=== PATIENT | male | born 1965 | race Caucasian/White ===

== ENCOUNTER 2019-03-01 02:57 | Outpatient (CLI) | payer BC, SELFPAY ==
[2019-03-01 10:12] LABS: CREATININE 1.26 mg/dL (0.70-1.30); Cholesterol 158 mg/dL (50-200); Estimated GFR 59.64 (mL/min/1.73m2); Glucose 116 mg/dL (70-100); HDL Cholesterol 36 mg/dL (40-60); LDL CHOLESTEROL 109 mg/dL (<100); Potassium 4.9 mmol/L (3.5-5.1); Triglyceride 54 mg/dL (30-150)
== END 2019-03-01 03:17 ==
PROVIDERS: PCP Family Medicine; Visit Provider Family Medicine
DX: E74.39 Other disorders of intestinal carbohydrate absorption (principal); E88.81 Metabolic syndrome and other insulin resistance
CPT/HCPCS: 36415; 80061; 82947; 83721; 82565; 84132

== ENCOUNTER 2019-12-16 11:21 | Outpatient (CLI) | payer BC, SELFPAY ==
--- NOTE | 2019-12-16 10:59 | DI.RAD_ITS ---
EXAM: XR KNEE LT 4V AP,LAT,ELLIE,PAT CLINICAL HISTORY: left knee pain TECHNIQUE: COMPARISON: No exams were available for comparison FINDINGS: Four views were obtained. Cartilaginous joint spaces appear fairly well maintained. No significant bony abnormality seen. IMPRESSION: Negative examination of the knee.
== END 2019-12-16 11:41 ==
PROVIDERS: PCP Family Medicine; Visit Provider Physician Assistant
DX: M25.562 Pain in left knee (principal)
CPT/HCPCS: 73564

== ENCOUNTER 2019-12-23 01:37 | Outpatient (CLI) | payer BC, SELFPAY ==
--- NOTE | 2019-12-23 08:07 | DI.MRI_ITS ---
EXAM: MR LOWER JOINT LT WO CLINICAL HISTORY: left knee pain,M25.562. TECHNIQUE: Multiplanar multisequence MRI was performed. COMPARISON: XR KNEE LT 4V AP,LAT,ELLIE,PAT from 12/16/2019 FINDINGS: There is a small joint effusion. There is a small amount of fluid seen anterior to the patella. Mar row signal is normal. The cruciate and collateral ligaments and extensor mechanism appear intact. T here is abnormal linear high signal seen extending through the posterior horn of the medial meniscus. There is also a radially oriented component of the tear in the posterior horn. The lateral meniscu s is somewhat peripherally displaced consistent with degenerative change. There is some linear incre ased signal seen in the body which could indicate a superimposed tear. No focal cartilage defects ar e seen. IMPRESSION: Meniscal flap tear of the posterior horn of the medial meniscus. Degenerative changes of the lateral meniscus with question of superimposed tear in the body.
== END 2019-12-23 01:57 ==
PROVIDERS: PCP Family Medicine; Visit Provider Student in an Organized Health Care Education/Training Program
DX: M25.562 Pain in left knee (principal); M25.462 Effusion, left knee; S83.242A Other tear of medial meniscus, current injury, left knee, initial encounter; M17.12 Unilateral primary osteoarthritis, left knee
CPT/HCPCS: 73721

== ENCOUNTER 2020-10-27 01:52 | Outpatient (CLI) | payer BC, SELFPAY ==
[2020-10-29 10:52] LABS: COVID-19 RT-PCR Result NEGATIVE (Negative)
== END 2020-10-27 02:12 ==
PROVIDERS: PCP Family Medicine; Visit Provider Surgery
DX: Z11.59 Encounter for screening for other viral diseases (principal); Z01.818 Encounter for other preprocedural examination
CPT/HCPCS: U0003

== ENCOUNTER 2020-10-30 10:13 | Day surgery (SDC) | payer BC, SELFPAY ==
[2020-10-30 10:29] VITALS: BP 139/52; PULSE 58; RESP 16; TEMP 36.6; O2SAT 98
[2020-10-30] MEDS: Lactated Ringers 1,000 ML 80 ML IV (10:59)
--- NOTE | 2020-10-30 11:22 | BOWEL_PTH ---
PATIENT: Terry Ayoub LOC: [facility] U#:[id number] AGE/SX: 55/M ROOM: RE10/30/[address]: Lisa Schroeder : 1965 BED: DIS: 10/30/2020 SPEC #: [id number] RECD: 10/30/20 12:35 STATUS: IVÁN REQ #: [id number] JANIS: 10/30/20 11:[address]: Lisa Schroeder DEPT: Surgical Specimen RECD BY: Naz Nunez ENTERED: 10/30/20 12:35 SP TYPE: Bowel OTHR DR: John Garza MD Tissues: 1 - BIOPSY BOWEL 2 - BIOPSY BOWEL Procedures: GROSS AND MICRO LEVEL 4 Comments: [id number]
--- NOTE | 2020-10-30 11:54 | W.PM.DSUDISC ---
Discharge Plan Disposition Patient Disposition: HOME Condition: Good Discharge Details Reason For Visit: colon scope Attending Provider: Lisa Schroeder Primary Care Provider: John Garza Home Meds and New Rx's Prescriptions: Continued lisinopril 10 mg tablet 10 mg PO DAILY Qty: 90 RF: 4 lovastatin 20 mg tablet 20 mg PO HS Qty: 90 RF: 4 fish oil-dha-epa 1 EACH capsule 1 ea PO DAILY RF: 0 MOTRIN 600 MG tablet 600 mg PO TID PRN RF: 0 c-pap RF: 0 Discontinued polyethylene glycol 3350 17 gram/dose powder 238 g PO ONCE Qty: 238 RF: 0 bisacodyl [Dulcolax (bisacodyl)] 5 mg tablet,delayed release (DR/EC) 5 mg PO ONCE Qty: 4 RF: 0 aspirin 81 MG tablet,chewable 81 mg PO DAILY Qty: 90 RF: 3 Discharge Instructions Additional Instructions: Findings: Few small scattered right-sided diverticula. There is make sure you follow a high-fiber diet and avoid straining to move your bowels. No significant hemorrhoidal disease. X3 small polyps in the rectal region-We will send a letter with the results of the pathology in 2 to 3 weeks and when to repeat the colonoscopy. -No aspirin or NSAIDs for 5 days. Follow up: 5 to 10 years. Please call if you develop: fevers >101.5 Nausea or Vomiting Abdominal pain that is not transient DAY SURGERY UNIT POST COLONOSCOPY INSTRUCTIONS 1. Because there will be medication in your system for the next 24 hours, you may feel a little sleepy. Your coordination will be affected. Therefore: a. Do not drive or operate dangerous equipment for 24 hours. b. Do not drink alcohol beverages for 24 hours (not even beer). c. Plan to go home and rest for the day. 2. Generally there are no restrictions on your activity after a day or so has gone by, but you may feel a bit fatigued for a few days. 3 After you arrive home you may have a light meal and return to a normal diet as you can tolerate it without feeling sick to your stomach. 4. After surgery, you may feel pain or discomfort. This should be only transient, but if it persists please contact your doctor. 5. If there are any questions regarding the findings of your procedure, please feel free to contact your doctor. 6. If you are unable to contact your doctor with a problem, contact the hospital at [phone]. 9. Continue all your regular medications unless directed otherwise. I understand the above instructions and have no questions. Signature of Patient or Responsible Adult Escort Date/Time Name of Responsible Adult Escort Signature of Nurse Date/Time DIVERTICULAR DISEASE OVERVIEW ? A diverticulum is a pouch-like structure that can form through points of weakness in the muscular wall of the colon (ie, at points where blood vessels pass through the wall). Diverticulosis affects men and women equally. The risk of diverticular disease increases with age. It occurs throughout the world but is seen more commonly in developed countries. WHAT IS DIVERTICULAR DISEASE? Diverticulosis ? Diverticulosis merely describes the presence of diverticula. Diverticulosis is often found during a test done for other reasons, such as flexible sigmoidoscopy, colonoscopy, or barium enema. Most people with diverticulosis have no symptoms and will remain symptom free for the rest of their lives. A person with diverticulosis may have diverticulitis, or diverticular bleeding. Diverticulitis ? Inflammation of a diverticulum (diverticulitis) occurs when there is thinning and breakdown of the diverticular wall. This may be caused by increased pressure within the colon or by hardened particles of stool, which can become lodged within the diverticulum. The symptoms of diverticulitis depend upon the degree of inflammation present. The most common symptom is pain in the left lower abdomen. Other symptoms can include nausea and vomiting, constipation, diarrhea, and urinary symptoms such as pain or burning when urinating or the frequent need to urinate. Diverticulitis is divided into simple and complicated forms. ?Simple diverticulitis, which accounts for 75 percent of cases, is not associated with complications and typically responds to medical treatment without surgery. ?Complicated diverticulitis occurs in 25 percent of cases and usually requires surgery. Complications associated with diverticulitis can include the following: ?Abscess ? a localized collection of pus ?Fistula ? an abnormal tract between two areas that are not normally connected (eg, bowel and bladder) ?Obstruction ? a blockage of the colon ?Peritonitis ? infection involving the space around the abdominal organ ?Sepsis ? overwhelming body-wide infection that can lead to failure of multiple organs Diverticular bleeding ? Diverticular bleeding occurs when a small artery located within a diverticulum is eroded and bleeds into the colon. Diverticular bleeding usually causes painless bleeding from the rectum. In approximately 50 percent of cases, the person will see maroon or bright red blood with bowel movements. Is bleeding with a bowel movement normal? ? It is not normal to see blood in a bowel movement; this can be a sign of several conditions, most of which are not serious (eg, hemorrhoids) but some of which are serious and require immediate treatment. Anyone who sees blood after a bowel movement should consult with their healthcare provider to determine if further testing or evaluation is needed. DIVERTICULOSIS AND DIVERTICULITIS DIAGNOSIS ? Diverticulosis is often found during tests performed for other reasons. ?Barium enema ? This is an x-ray study that uses barium in an enema to view the outline of the lower intestinal tract. This is an older test and has been largely replaced by computed tomography (CT) scan. ?Flexible sigmoidoscopy ? This is an examination of the inside of the sigmoid colon with a thin, flexible tube that contains a camera. ?Colonoscopy ? This is an examination of the inside of the entire colon. ?CT scan ? A CT scan is often used to diagnose diverticulitis and its complications. If diverticulitis (not just diverticulosis) is suspected, the above three tests should not be used because of the risk of perforation. TREATMENT Diverticulosis ? People with diverticulosis who do not have symptoms do not require treatment. However, most clinicians recommend increasing fiber in the diet, which can help to bulk the stools and possibly prevent the development of new diverticula, diverticulitis, or diverticular bleeding. Fiber is not proven to prevent these conditions in all patients but may help to control recurrent episodes in some. Increase fiber ? Fruits and vegetables are a good source of fiber. Fiber content of packaged foods can be calculated by reading the nutrition label. Seeds and nuts ? Patients with diverticular disease have historically been advised to avoid whole pieces of fiber (such as seeds, corn, and nuts) because of concern that these foods could cause an episode of diverticulitis. However, this belief is completely unproven. We do not suggest that patients with diverticulosis avoid seeds, corn, or nuts. Diverticulitis ? Treatment of diverticulitis depends upon how severe your symptoms are. Home treatment ? If you have mild symptoms of diverticulitis (mild abdominal pain, usually left lower abdomen), you can be treated at home with a clear liquid diet and oral antibiotics. However, if you develop one or more of the following signs or symptoms, you should seek immediate medical attention: ?Temperature >100.1?F (38?C) ?Worsening or severe abdominal pain ?An inability to tolerate fluids Hospital treatment ? If you have moderate to severe symptoms, you may be hospitalized for treatment. During this time, you are not allowed to eat or drink; antibiotics and fluids are given into a vein. If you develop an abscess of the colon, you may require drainage of the abscess (usually performed by placing a drainage tube across the abdominal wall) or by surgically opening the affected area. Surgery ? If you develop a generalized infection in the abdomen (peritonitis), you will usually require an emergency operation. A two-part operation may be necessary in some cases. ?The first operation involves removal of the diseased colon and creation of a colostomy. A colostomy is an opening between the colon and the skin, where a bag is attached to collect waste from the intestine. The lower end of the colon is temporarily sewed closed to allow it to heal. ?Approximately three to six months later, a second operation is performed to reconnect the two parts of the colon and close the opening in the skin. You are then able to empty your bowels through the rectum. Sometimes patients require up to a year to recover from the first operation, depending on how sick they were. In non-emergency situations, the diseased area of the colon can be removed and the two ends of the colon can be reconnected in one operation, without the need for a colostomy. Surgery versus medical therapy ? An operation to remove the diseased area of the colon may be necessary if you do not improve with medical therapy. After an episode of uncomplicated diverticulitis, elective surgery is generally not required as the risk of another attack or requiring emergency surgery is low. However, patients with persistent symptoms attributable to diverticulitis, a history of complicated diverticulitis, or a compromised immune system should be evaluated for possible surgery to prevent another attack. In such patients, another attack has been associated with a higher risk of complications or . Of course, the decision will also depend in part upon your other medical conditions and ability to undergo surgery. In many cases, an elective operation can be performed laparoscopically, using small incisions, rather than the typical vertical (up and down) abdominal incision. Laparoscopic surgery usually allows you to recover more quickly and shortens the hospital stay. After diverticulitis resolves ? After an episode of diverticulitis resolves, if you have not had a recent colonoscopy, the entire length of the colon should be evaluated to determine the extent of disease and to rule out the presence of abnormal lesions such as polyps or cancer. Recommended tests include colonoscopy, barium enema and sigmoidoscopy, or CT colonography. Diverticular bleeding ? Most cases of diverticular bleeding resolve on their own. However, some people will need further testing or treatment to stop bleeding, which may include a colonoscopy, angiography (a treatment that blocks off the bleeding artery), bleeding scan, or surgery. DIVERTICULAR DISEASE PROGNOSIS Diverticulosis ? Over time, diverticulosis may cause no problems or it may cause episodes of bleeding and/or diverticulitis. Approximately 15 to 25 percent of people with diverticulosis will develop diverticulitis, while 5 to 15 percent will develop diverticular bleeding. Diverticulitis ? Approximately 85 percent of people with uncomplicated diverticulitis will respond to medical treatment, while approximately 15 percent of patients will need an operation. After successful treatment for a first attack of diverticulitis, one-third of patients will remain asymptomatic, one-third will have episodic cramps without diverticulitis, and one-third will go on to have a second attack of diverticulitis. The prognosis tends to remain similar following a second attack of diverticulitis. Only 10 percent of people remain symptom-free after a second attack. Subsequent attacks tend to be of similar severity, not increasing in severity as previously believed. High Fiber Diet What is Dietary Fiber? All fiber comes from plants, bushes, tasha or trees. Of course, the ones that we eat provide us with fruits, vegetables and grains. There are many different types of fiber but the three that are most important to the health of the body are: Insoluble Fiber This fiber does not dissolve in water, nor is it fermented by the bacteria residing in the colon. Rather, it retains water and in so doing, helps to promote a larger, bulkier and more regular bowel activity. This, in turn, may be important in preventing disorder such as diverticulosis and hemorrhoids, and in sweeping out certain toxins and cancer causing carcinogens. Sources of insoluble fiber are: ? whole grain wheat and other whole grains ? corn bran, including popcorn, unflavored and unsweetened ? nuts and seeds ? potatoes and the skins from most fruits from trees such as apples, bananas and avocados ? many green vegetables such as green beans, zucchini, celery and cauliflower ? some fruit plants such as tomatoes and kiwi Soluble Fiber These fibers are fermented or used by the colon bacteria as a food source or nourishment. When these good bacteria grow and thrive, many health benefits occur in both the colon and the body. Soluble fiber is present in some degree in most edible plant foods, but the ones with the most soluble fiber include: ? legumes such as peas and most beans, including soybeans ? oats, rye and barley ? many fruits such as berries, plums, apples bananas and pears ? certain vegetables such as broccoli and carrots ? most root vegetables ? psyllium husk supplement products Prebiotic Soluble Fiber These are relatively newly discovered soluble plant fibers. The technical name for this fiber is inulin or fructan. When these soluble fibers are fermented by the good colon bacteria, some further significant health benefits have been shown to occur by research in many medical centers. These soluble prebiotic fibers occur in significant amounts in: ? asparagus ? yams ? onions ? garlic ? bananas ? leeks ? agave ? chicory and other root vegetables such as [place] artichokes ? wheat, rye and barley (smaller amounts) Benefits of a High Fiber Diet The health benefits of a high fiber diet, consumed on a regular basis and reaching recommended amounts (below), are now fairly well-defined. There are some additional benefits in the early research stage with the prebiotic soluble fibers. What is now known regarding a high fiber diet include: Bowel Regularity A high fiber diet promotes regularity with a softer, bulkier and regular stool pattern. This decreases the chance of hemorrhoids, diverticulosis and perhaps colon cancer. Cholesterol and Reduced Triglycerides The soluble fibers are the ones that will reduce cholesterol levels when used on a regular basis. Psyllium husk and prebiotic soluble fiber will also reduce cholesterol. They may also reduce the incidence of coronary heart disease. Oats, flax seeds and legumes or beans are the recommended fibers. Colon Polyps and Cancer It is still not certain if a high fiber diet helps prevent colon cancer. Considerable research suggests that this may occur. Certainly it makes sense to increase regularity and so speed the movement of cancer causing carcinogens through the bowel. In addition, reducing a heavy meat diet reduces the bile flow from the liver in a favorable way. This, too, reduces the amount of carcinogens that reach and are manufactured in the colon. Finally, a high fiber diet, including prebiotic soluble fiber, increases the integrity and health of the wall of the colon. The risk of cancer may be reduced. Colon Wall Integrity A high fiber diet changes the bacterial makeup of the colon toward a more favorable balance. For instance, it is known that those people with obesity, diabetes type 2 and inflammatory bowel disease have a predominance of bad bacteria in the colon. This, in turn, may render the bowel wall weak and allow bacteria and, indeed, even toxins to seep through. A high fiber diet with a modest reduction in animal and meat products may return the bacterial makeup to a more positive balance. This, in particular, has been seen when the soluble fiber prebiotics are added to the diet. Blood Sugar Soluble fiber such as in legumes (beans), oats and in prebiotic fibers slows the absorption of blood sugar and so helps regulate the sugar in the blood. Insoluble fiber on a regular basis is associated with reduced risk of type 2 diabetes. Weight Loss High fiber diets are more filling and give a sense of fullness sooner than an animal and meat based diet does. In addition, the soluble prebiotic fibers have been shown to turn off the hunger hormones produced in the wall of the gut and to increase the hormones that give a sense of fullness. Those hormones are made in the wall of the gut. New medical research has shown that the bacterial makeup in the colon in overweight people is abnormal to the extent that they manufacture and absorb almost twice the number of calories through the colon wall as do normals. Prebiotic fibers (below) will help change this hormonal balancein a favorable way. Bacteria and the Function of the Colon The colon finishes the digestive process. Hopefully, the waste products move through in a nice regular manner. Insoluble fibers help this process by retaining water and so producing a bulkier, softer stool, which is easy to pass. The additional role of the colon is to provide a home for an enormous number of micro-organisms, mostly bacteria. Recent research has shown that there are over 1,000 species of bacteria with a total bacterial count ten times the number of cells in the body. These bacteria play a major role in keeping the colon wall itself healthy. In addition, these good bacteria produce a very strong immune system for the body. They significantly increase calcium absorption and bone density. They provide other documented benefits. It is the soluble fibers in the diet that are so effective in stimulating the growth of good colon bacteria. How Much is Enough? The amount of fiber in food is measured in grams. National nutritional authorities recommend the following amounts of dietary fiber daily. Under Age 50 Over Age 50 Men 38 grams 30 grams Women 25 grams 21 grams For a week or so, it is best to tally the amount of fiber you are consuming. Boxed and packaged foods will have the amount of fiber per serving on the nutrition label. Which Fibers and Which Foods are Best? As noted, healthy fiber is only found in plants. The three major categories are whole grains, fruits and vegetables. Whole Grains Wheat, oats, barley, wild or brown rice, amaranth, buckwheat, bulgur, corn, millet, quinoa, rye, sorghum, teff and triticals. By far, wheat, oats and wild or brown rice are most common. Always buy whole grain products. White bread, baked goods and rolls almost always are made from wheat flour. Wheat flour is white because most of the fiber, vitamins and other nutrients have been removed. Try not buy enriched grains. What this means is that simple white flour has had vitamins added to it by the business intelligence analyst. The word, enriched, implies a good and healthy product. On the contrary, enriched means that most of the fiber has been removed and a few vitamins added. Fruits Fruits come from trees such as apple and pear or from bushes or tasha. You should eat a wide variety of fruits, preferably with every meal. In many cases, the skin of a fruit such as apple will contain much of the insoluble fiber while the pulp contains most of the soluble fiber. To the extent possible, buy organic fruits as these will have little or no pesticides. Always wash fruit. Vegetables Eat a wide variety of vegetables. They should be a mainstay of lunch and dinners. Frozen vegetables retain as much nutrition and fiber as fresh vegetables. As with fruit, try to buy organic to reduce any residual pesticide ingestion. Wash fresh vegetables thoroughly. Cruciferous vegetables such as broccoli, Brilliant sprouts and cauliflower contain certain chemicals such as sulforaphane. This substance has very strong anti-cancer properties and should be eaten frequently. Legumes, Beans, Peas and Soybeans These vegetables have plenty of soluble fiber and should be part of a varied vegetable intake. Beans, in particular, contain a certain type of fiber that may lead to harmless gas or bloating. Nuts and Seeds These are rich sources of fiber and are a good substitute for sweets such as candies and baked sweet goods. While nuts and seeds are rich in fiber, they also contain vegetable fat and so can and do add calories. Read the Labels As noted, fresh and frozen foods are usually better. They have good nutrition and few, if any, chemicals added to them. When buying packaged foods and, in particular grains, look for three things: ? The first word on the label should be whole, such as whole wheat or whole grain. ? Check out the calories and the amount of fiber in a serving. ? How many and what other additives or chemicals are added. Fewer is always better. Do you know what each additive does? Some are added not for the benefit of the purchasing buyer but rather for manufacturers. These could and do include sugar, artificial flavor, chemicals to prevent oxidation and spoilage, emulsifiers to blend the product. You have to be a ambulance operations supervisor. Fiber Facts, Nuggets and Pearls ? For breakfast you can easily get the day started well by using a high fiber, whole grain cereal. Check the labels. Add fruit such as blueberries and bananas. If you are an egg eater, use whole wheat or grain toast. Adding wheat germ gives you a good fiber kick. ? Always use whole grain or wheat with rolls and sandwiches. Does your fast food store not have them? Perhaps you look elsewhere. Eating an occasional black mims or veggie burger provides variety. ? Snacks should consist of fruit and/or nuts. While nuts are loaded with fiber, they are an energy rich food, meaning they have a lot of calories in a small packet. ? Fruit juices should contain pulp. Clear juices such as clear orange, pear or apple juice contain little fiber and have a lot of fructose. Prune juice is usually high in fiber. ? Homemade soups ? adding fresh or frozen vegetables to a chicken or vegetable stock is a good way to start homemade soup. ? Salads ? adding cooked and then chilled vegetables provide great flavoring to almost any salad. Remember, a cain salad has lots of cooked corn in it. Small slices of apples or oranges and nuts such as chopped walnuts or sliced almonds always adds taste, variety and fiber to almost any salad. ? Fruit ? Try to eat fruit of some type with almost every meal. ? Rethink how you place the various foods on your dinner plate. Reducing the portions of the meat or animal food portion to the side with equal or more portions of vegetables, legumes and fruits portion always allows for more fiber. There was never anything magic about making the meat or animal food portion the main part of the dinner plate. Eating from smaller plates can, over time, trick your mind and correction habit of using a dinner plate. Again, there is nothing magic in an 11, 12, or 13 inch dinner plate. Fiber Supplements There are a variety of fiber supplements available on the food or pharmacy shelves. Psyllium This soluble plant fiber has been used in [place] for over 2,000 years. It is a soluble fiber with mucilage in it. This acts to retain a lot of water and also is fermented by colon bacteria. When 7 grams a day are used, it does lower cholesterol. Metamucil in various forms is psyllium. Methyl Cellulose All the cellulose products come from finely ground wood chips which are then treated in a variety of ways such as boiling in acids. Methyl cellulose is an insoluble fiber which does dissolve in water. It is also an emulsifier, meaning it blends oils and water. Citrucel is methyl cellulose (MC). MC may not be appropriate for Crohn?s disease or ulcerative colitis as several medical studies have shown that certain emulsifiers dissolve the mucous lining of the colon in animals prone to Crohn?s disease. This then allows bacteria to invade the underlying tissue. Inulin Inulin is a soluble prebiotic fiber found in many foods and which are fermented mostly in the left side of the colon. It is available in a supplement as generic inulin and in Fiber Choice. Oligofructose FOS These are also prebiotic fibers. They are fermented very quickly in the right side of the colon. Prebiotin This product is a combination of oligofructose, which feeds the bacteria in the right side of the colon and inulin, which does the same in the left side of the colon. There seems to be a benefit for this particular formula based on medical research. Prebiotic Soluble Fiber These may be the healthiest of all the soluble fibers. They grow in many plants and have had a great deal of research done on them in the last 10-15 years. These fibers are found in asparagus, yams and other root vegetables such as chicory, garlic, onion, leeks and in smaller amounts in wheat. This research has shown the following: ? Increase in good and decrease in bad colon bacteria ? Increase calcium absorption and enhanced bone mass ? Enhanced immune system ? Appetite and weight control by changing the hormone appetite signals to the brain ? May decrease colon cancer incidence ? Reduce or correct a leaky colon Eating a wide variety of plant food up to the recommended amount will likely give you enough prebiotic fiber. Supplements such as Prebiotin can be added to the diet. Short Chain Fatty Acids (SCFA) Some rather remarkable research findings have shown that one of the benefits of ingesting a lot of soluble fiber, in particular the prebiotic ones, results in larger amounts of SCFAs in the colon. These SCFAs are made by the good bacteria in the colon such as Bifidobacter and Lactobacillus. These small molecules have been shown to do the following: ? Enhance the health and integrity of the colon wall ? Provide nourishment for the cells that actually line the colon ? Increases the acidity of the colon which is a very real health benefit ? Stabilize blood sugar for diabetics ? Reduce blood cholesterol and triglyceride ? Significantly enhance immunity ? May be a benefit for Crohn?s disease and ulcerative colitis patients Fiber and Gas Everyone has intestinal gas and that is a good thing. It means that bacteria, hopefully the good ones, are thriving. The normal amount of flatus passed each day depends on sex and what is eaten. The normal number of flatus is 10-20 times a day. When the bacteria that make intestinal gases are growing, it also means that other good bacteria are using the same fibers to grow and produce multiple health benefits, including the production of healthy short-chain fatty acids. These substances are produced quietly in the colon and produce many health-related outcomes. Soluble fiber should always be used in a gradual manner. If too much is consumed at any one time, then excess, but harmless, intestinal gas can occur. People with irritable bowel syndrome are particularly prone to bloating and mild cramping. In this instance, soluble fiber in the diet or supplement should be used in small doses and increased gradually. Finally, prebiotic fibers tend to cause the production of short-chain fatty acids which acidify the colon. This, in turn, reduces or stops the growth of bacteria that make the smelly hydrogen sulfide gases that produce noxious flatus. People who consume many vegetables with prebiotics or take a prebiotic fiber supplement often have non-odoriferous flatus. Fiber and Irritable Bowel Syndrome Irritable bowel syndrome (IBS) is one of the most common disorders of the lower digestive tract. The symptoms of IBS can be quite varied. They can be a mix of several symptoms such as constipation, diarrhea, crampy abdominal discomfort, bloating and gas. An attack of IBS can be triggered by emotional tension and anxiety, poor dietary habits and certain medications. It is now known that infections in the intestine can lead to long-term IBS symptoms. Increased amounts of fiber in the diet can help relieve the symptoms of irritable bowel syndrome by producing soft, bulky stools. This helps to normalize the time it takes for the stool to pass through the colon. Recent medical research with newer techniques has shown some surprising and dramatic findings for IBS patients. Specifically, there is a very significant and abnormal shift of bacteria from those that provide health benefits to those bad bacteria that we really do not want in the gut. The technical name for this bad group of bacteria is called Firmicutes. Along with this abnormal bacterial collection, there is a smoldering low-grade inflammation in the gut wall that may contribute to symptoms. The goal for IBS patients should be to gradually increase the soluble dietary fibers in the diet so as to promote the growth of good bacteria and so suppress the bad ones along with the associated inflammation. IBS patients need to be careful of the amount of soluble fiber they consume. The reason for this is that, while the good colon bacteria thrive on these fibers and produce health benefits, other gas-forming bacteria may generate excessive but harmless gas and subsequent bloating. Thus, soluble plant fibers or a dietary prebiotic supplement should be taken in small initial doses and then gradually increased to tolerance. Fiber and Colon Polyps/Cancer Colon cancer is a major health problem. This disease is most common in Western cultures. It is not seen very often in rural cultures where the diet is mostly plant based. Usually, colon cancer starts out as a colon polyp, a benign mushroom-shaped growth. In time it grows, and in some people it becomes cancerous. Colon cancer is usually always curable if polyps are removed when found or if surgery is performed at an early stage. It is now known that people can inherit the risk of developing colon cancer, but diet is important, too. As noted, there is a very low rate of colon cancer in residents of countries where grains are unprocessed and retain their fiber. It seems that in the [place] world, cancer-containing agents (carcinogens) remain in contact with the colon wall for a longer time and in higher concentrations. So, a large bulky stool may act to dilute these carcinogens by moving them through the bowel more quickly. Less carcinogenic exposure to the colon may mean fewer colon polyps and less cancer. A very current review of the entire world?s literature on the effect of fiber on colon polyps and cancer prevention has shown rather clearly that for every 10 grams of fiber added to the diet, there is a 10% reduction in incidence of colon cancer. So the recommended 30 gram fiber diet would result in a 30% less chance of getting these tumors. There are also substances produced in the colon by the good bacteria that seem to retard certain pre-cancer factors from developing. They are called short-chain fatty acids (SCFA). See above for description of SCFAs. A high fiber diet increases these substances. So, the combination of dietary fiber and the production of short-chain fatty acids have a clear health benefit. Fiber and Diverticulosis Prolonged, vigorous contraction of the colon over a long period of time may result in diverticulosis. This increased pressure causes small and, eventually, larger ballooning pockets to form. These pockets by themselves cause no problem. However, sometimes they become infected (diverticulitis) or even break open (perforate) causing infection or inflammation within the abdomen (peritonitis). A high fiber diet increases the bulk in the stool and thereby reduces the pressure within the colon. By so doing, the formation of pockets may be reduced or possibly even stopped. In the past, many physicians were fearful that seeds as in tomatoes, nuts or berries were harmful and could get inside these pockets and rattle around, causing damage. We now know that this has never been the case and that these foods contain lots of fiber and are actually beneficial for diverticulosis patients. Certain bulking agents such as psyllium are traditional types of bulk producing supplements. Psyllium is a soluble fiber. Combining it with insoluble fiber as in wheat bran or corn bran (no gluten) can enhance this bulking effect even more. A product containing a prebiotic, psyllium and wheat bran is probably a very good combination for bowel regularity. Prebiotin Regularity/Diverticulosis is one such product. Activity:: No strenuous activity or lifting over 20 pounds x 24 hours. Diet:: Small light meals x24 hours Discharge Orders Discharge Orders: Discharge Order (Routine); Ordered 10/30/20 Ordered By: Lisa Schroeder DS: Diagnosis Discharge Diagnosis (1) Colon polyp: Status: Acute (2) Diverticula, colon, congenital: Status: Acute
--- NOTE | 2020-10-30 12:00 | W.COLOREPORT ---
Date of service: 10/30/20 Time of Service: 12:00 Colonoscopy Report Date of procedure: 10/30/20 Pre-op diagnosis general: CRC screen Post-op diagnosis procedure note: other (polyps and divertic ) Surgeon: Lisa Schroeder Anesthesia proc note operative: GETA Estimated blood loss (mL): 1 Pathology: other Complications: None Disposition: same day Prep: Miralax/Dulcolax Retraction Time: 15 mins Procedure Description: After informed consent was obtained the patient was taken to the procedure room and placed in a left decubitous position. Monitors were applied and a time out was done. The patients name, date of , procedure, allergies to medications and metal in their body was reviewed. The patient was then sedated. Once sedated and comfortable a rectal exam was done. External exam was normal. Internal exam revealed a normal sphincter tone and no palpable masses. No significant hemorrhoidal disease noted today. The scope was then introduced and retrofelexed. no Internal hemorrhoids were identified. The scope was then advanced to the cecum w/out difficulty. The TI and appendiceal orifice were identified. The prep was good. The scope was then slowly retracted over 15 minutes back into the rectum. Polyps were removed at: He has x4 less than 5 mm flat polyps. 2 at 20 cm of int he has a few small right-sided diverticula. They are very small and scattered. There is no signs of any active bleeding or infection. Mucosa is otherwise normal and healthy. There are no AVMs. in the rectum. These are all removed with a cold biting force. All specimens retrieved and no bleeding noted. The scope was removed and the patient was woken up and taken back to Same day surgery in stable condition. The patient tolerated the procedure well and there were no immediate complications. Follow up: The patient should follow up in 5-10 years, path pd, unless they develop changes in bowel habits or other new gastrointestinal complaints.
[2020-10-30 12:36] VITALS: BP 130/76; PULSE 56; RESP 16; TEMP 36.6; O2SAT 99
== END 2020-10-30 12:45 | disposition home or self-care (01) ==
PROVIDERS: PCP Family Medicine; Visit Provider Surgery
PROC: 0DJD8ZZ Inspection of Lower Intestinal Tract, Via Natural or Artificial Opening Endoscopic (ICD-10-PCS; CPT 45378; principal; 2020-10-30 10:30)
DX: Z12.11 Encounter for screening for malignant neoplasm of colon (principal); K63.5 Polyp of colon; K57.30 Diverticulosis of large intestine without perforation or abscess without bleeding; I10 Essential (primary) hypertension; G47.33 Obstructive sleep apnea (adult) (pediatric)
CPT/HCPCS: 45380; 88305

== ENCOUNTER 2021-03-05 01:33 | Outpatient (CLI) | payer BC, SELFPAY ==
[2021-03-05 14:40] LABS: CREATININE 1.4 mg/dL (0.70-1.30); Calculated LDL 108 mg/dL (<100); Cholesterol 164 mg/dL (<200); Estimated GFR 52.42 (mL/min/1.73m2); HDL Cholesterol 45 mg/dL (40-60); Potassium 4.8 mmol/L (3.5-5.1); Triglyceride 58 mg/dL (<150)
== END 2021-03-05 01:34 | disposition home or self-care (01) ==
LOC: LOS 01:33
PROVIDERS: PCP Family Medicine; Visit Provider Family Medicine
DX: I10 Essential (primary) hypertension (principal); E78.5 Hyperlipidemia, unspecified
CPT/HCPCS: 36415; 80061; 82565; 84132

== ENCOUNTER 2021-12-22 12:42 | Outpatient (REF) | payer BC, SELFPAY ==
[2021-12-23 13:34] LABS: COVID-19 RT-PCR UVMMC Result Negative (Negative)
== END 2021-12-22 12:43 | disposition home or self-care (01) ==
LOC: LBN 12:42
PROVIDERS: PCP Family Medicine; Visit Provider Nurse Practitioner Family
DX: R05.9 Cough, unspecified (principal); R06.2 Wheezing; R09.89 Other specified symptoms and signs involving the circulatory and respiratory systems; Z20.822 Contact with and (suspected) exposure to COVID-19
CPT/HCPCS: U0003

== ENCOUNTER 2021-12-31 00:59 | Outpatient (CLI) | payer BC, SELFPAY ==
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
== END 2021-12-31 01:19 ==
PROVIDERS: PCP Family Medicine; Visit Provider Nurse Practitioner Family
DX: R05.3 Chronic cough (principal); R91.8 Other nonspecific abnormal finding of lung field
CPT/HCPCS: 71046

== ENCOUNTER 2022-01-17 11:30 | Outpatient (CLI) | payer BC, SELFPAY ==
--- NOTE | 2022-01-17 10:30 | DI.RAD_ITS ---
Exam(s) XR CHEST 2V PA LATERAL EXAM: XR CHEST 2V PA LATERAL CLINICAL HISTORY: F/U with nipple markers CHRONIC COUGH R05.3. TECHNIQUE: 2D digital imaging was performed. COMPARISON: CR XR CHEST 2V PA LATERAL from 12/31/2021 FINDINGS: Heart size is normal. The mediastinum is not widened. Lungs are clear. No infiltrates nor pleural effusions. Previously present nodular density in the right lung base is less evident on the present study. Kiran hayley, the nipple marker does appear to be in the region where the previously present nodule was locate d. IMPRESSION: No acute pulmonary findings.No obvious nodule on the present study. Recommend repeat chest x-ray in 3 months with maximum inspiration. DATA REPOSITORY: RADIATION DOSE DELIVERED:
== END 2022-01-17 11:50 ==
PROVIDERS: PCP Family Medicine; Visit Provider Nurse Practitioner Family
DX: R05.3 Chronic cough (principal)
CPT/HCPCS: 71046

== ENCOUNTER 2022-05-04 03:51 | Outpatient (CLI) | payer BC, SELFPAY ==
[2022-05-04 08:58] LABS: ALT 46 U/L (16-63); AST 23 U/L (15-37); Albumin 3.8 g/dL (3.4-5.0); Alkaline Phosphatase 87 U/L (46-116); Anion Gap 7.2 mmol/L (3-11); BUN 22 mg/dL (7-18); Bilirubin, Total 0.6 mg/dL (0.2-1.0); CO2 29.8 mmol/L (21.0-32.0); CREATININE 1.4 mg/dL (0.70-1.30); Calcium 8.8 mg/dL (8.5-10.1); Chloride 100 mmol/L (98-107); Estimated GFR 52.05 (mL/min/1.73m2); Glucose 121 mg/dL (74-106); Potassium 4.5 mmol/L (3.5-5.1); Sodium 137 mmol/L (136-145); Total Protein 7.2 g/dL (6.4-8.2)
== END 2022-05-04 03:52 | disposition home or self-care (01) ==
LOC: LBO 03:51
PROVIDERS: PCP Nurse Practitioner Family; Visit Provider Nurse Practitioner Family
DX: I10 Essential (primary) hypertension (principal)
CPT/HCPCS: 36415; 80053

== ENCOUNTER 2023-07-25 03:20 | Outpatient (CLI) | payer BC, SELFPAY ==
[2023-07-25 08:59] LABS: Hemoglobin A1C 6.1 % (<5.7)
[2023-07-25 09:21] LABS: CREATININE 1.4 mg/dL (0.70-1.30); Calculated LDL 96 mg/dL (<100); Cholesterol 153 mg/dL (<200); HDL Cholesterol 42 mg/dL (40-60); Potassium 4.6 mmol/L (3.5-5.1); Triglyceride 78 mg/dL (<150)
== END 2023-07-25 03:21 | disposition home or self-care (01) ==
LOC: LBO 03:20
PROVIDERS: PCP Nurse Practitioner Family; Visit Provider Nurse Practitioner Family
DX: I10 Essential (primary) hypertension (principal); E78.5 Hyperlipidemia, unspecified; Z13.1 Encounter for screening for diabetes mellitus
CPT/HCPCS: 36415; 80061; 82565; 83036; 84132

== ENCOUNTER 2023-08-29 22:45 | Inpatient (IN) | payer BC, SELFPAY ==
[2023-08-29] VITALS (8 sets, daily range): BP systolic 147–205; BP diastolic 87–111; PULSE 75–96; RESP 18; TEMP 36.8; O2SAT 89–97
--- NOTE | 2023-08-29 22:45 | DI.CT_ITS ---
Exam(s) CT ABDOMEN PELVIS W EXAM: CT ABDOMEN PELVIS W CLINICAL HISTORY: abdominal pain, n/v, ?sbo. TECHNIQUE: Imaging Protocol: Axial computed tomography images with coronal and sagittal reformatted images were created and reviewed CONTRAST MATERIAL: Intravenous: Omnipaque-350 100cc Oral: None COMPARISON: CT ABD PELVIS WITH CONTRAST from 08/29/2015 FINDINGS: VISUALIZED LUNG BASES: No nodules nor pleural effusions evident. ABDOMEN: There is no ascites. LIVER: Liver is again noted be hypodense implying steatosis. There are no discrete focal hepatic les ions nor dilated intrahepatic ducts. GALLBLADDER/BILIARY: No obvious gallbladder pathology. CBD is not dilated. PANCREAS: No evidence of pancreatic mass nor dilatation of the pancreatic duct. SPLEEN: Spleen size upper normal. No splenic lesions evident. Splenic and portal veins are patent. ADRENALS: There are no significant adrenal masses. KIDNEYS:No cysts evident. No solid renal masses. No calculi nor hydronephrosis.. ABDOMINAL AORTA: Calcified but not enlarged. Iliac arteries also calcified but not enlarged. LYMPH NODES:There is no retroperitoneal nor paraaortic adenopathy. ABDOMINAL WALL: Fat only containing right paraumbilical hernia. There is also a left inguinal hernia which contains part of the sigmoid. The sigmoid at this level is collapse. This is not the transit ion point level here. There is also a right inguinal hernia which contains some fluid but no bowel l oops within the hernia sac. GI: There are multiple abnormally dilated small bowel loops and stomach is also distended. Consisten t with mid small bowel obstruction pattern, similar to 2015. Transition point is in the right-side o f the abdomen with collapsed distal I ileal loops. The dilated bowel loops measure up to 3.5 cm. No associated pneumatosis. No free air. No ascites. No abscess. PELVIS: GI: No evidence of appendicitis.Significant part of the colon is collapsed. LYMPH NODES: There is no intrapelvic nor inguinal adenopathy. REPRODUCTIVE: Prostate not enlarged. Seminal vesicles unremarkable. URINARY BLADDER: No calculi nor obvious masses evident OSSEOUS: No fractures and no significant osseous lesions. IMPRESSION: 1. Findings are consistent with mid-distal small bowel obstruction with transition point in the right -side of the abdomen at the mid-distal ileal region. Similar small bowel obstruction was evident in August 2015. Correlation with history of inflammatory bowel disease recommended. 2. Bilateral inguinal hernias are noted. Left inguinal hernia contains part of the collapsed sigmoid . The right inguinal hernia contains some fluid but no bowel loops therein. 3. Surgical consultation recommended RADIATION DOSE DELIVERED: 801.38mGy.cm Total DLP DATA REPOSITORY: All CT scans at this facility are submitted to the National Radiology Data Registry (NRDR) Dose Index Registry (DIR) with the [employer] ([employer]). RADIATION OPTIMIZATION: All CT scans at this facility use at least one of these dose optimization te chniques: automated exposure control; mA and/or kV adjustment per patient size (includes targeted exa ms where dose is matched to clinical indication); or iterative reconstruction.
--- NOTE | 2023-08-29 22:58 | W.ED.GENAD ---
Discharge Plan Disposition Patient Disposition: Admit to [facility] Condition: Stable Discharge Details Clinical Impression: Small bowel obstruction Primary Care Provider: Aj Rucker ED Provider: Dhaval Hale Home Meds and New Rx's Prescriptions: No Action cyclobenzaprine 5 mg tablet See Rx Instructions PO DAILY Qty: 30 1RF Rx Instructions: 1-2 pills at bedtime as needed. 1 pill every 8 hours during the day as needed for additional pain relief orally daily; prednisone 20 mg tablet See Rx Instructions PO ONCE Qty: 15 0RF Rx Instructions: Take 3 pills today and then 2 pills every morning for 6 more days. orally once; methylprednisolone 4 mg tablets,dose pack 4 mg PO DAILY Qty: 21 0RF aspirin 81 mg tablet,chewable 81 mg PO DAILY Qty: 90 3RF omeprazole 20 mg capsule,delayed release(DR/EC) 20 mg PO DAILY Qty: 60 0RF fish oil-dha-epa 1 EACH capsule 1 ea PO DAILY MOTRIN 600 MG tablet 600 mg PO TID PRN c-pap tadalafil 20 mg tablet 20 mg PO DAILY PRN (Reason: sexual activity) Qty: 30 3RF Rx Instructions: administer approximately 30min before sexual activity; do not use more than 1 dose per 24hrs losartan 50 mg tablet 50 mg PO DAILY Qty: 90 3RF lovastatin 20 mg tablet 20 mg PO HS Qty: 90 12RF Medical Decision Making 58 yo male with hx of htn, hld, prior umbilical hernia surgery comes in with cc of abdominal pain. HE states he felt well during the day and then after eating dinner he started to have n/v and abdominal pain. He denies fevers, chills, chest pain, dyspnea. He arrives hypertensive but stable. HE is tender in all quadrants and his abdomen is firm, concern for sbo vs other acute surgical emergencies, will proceed with cbc, cmp, lipase, ua and ct abd/pelvis to further evaluate. He has no chest pain or dyspnea so doubt acs and no upper tearing back pain so doubt dissection. CT confirms sbo with transition point in right mid abdomen. Pt was feeling better but is now again vomiting and having pain. He has had a scrotal hernia before but has no pain in the testicles. Discussed with Dr. Schroeder who accepts for admission. Differential Diagnosis Differential Diagnosis: sbo, pancreatitis Medical Records Medical records reviewed: Yes I reviewed the patient's medical records. Imaging Data Radiologic Study: Attestation: I personally reviewed and interpreted this imaging study as follows: Imaging: CT Scan Radiologist's impression: IMPRESSION: Findings concerning for distal small bowel obstruction with apparent transition point in the right mid abdomen (mid to distal ileum). Radiologic Study #2: Attestation: I personally reviewed and interpreted this imaging study as follows: Imaging: X-Ray My impression: NG tube just distal to the stomach Lab Data Lab results reviewed: Yes I reviewed the patient's lab results. HPI General Mode of arrival: ambulatory. Date/Time Provider Initiated Documentation: 08/29/23 22:46. Limitations to Documentation: no limitations. Information obtained by: patient. History of Present Illness 58 year old M presents to the emergency department with the chief complaint of abdominal pain, described as moderate, and is localized to the abdomen. Patient reports no radiation. Patient started experiencing this hour(s) (3) and it has been constant. No relieving factors improve symptom(s), No exacerbating factors reported . Patient notes nausea/vomiting; denies chest pain, fever/chills and shortness of breath. Patient did receive the following treatments prior to arrival, none Related Data Home Medications Medication Instructions Recorded Confirmed Motrin 600 mg PO TID PRN 05/27/13 08/18/23 fish oil-dha-epa 1,200 mg-144 1 ea PO DAILY 05/27/13 08/18/23 mg-216 mg capsule C-Pap 07/25/17 08/18/23 tadalafil 20 mg tablet 20 mg PO DAILY PRN sexual activity 04/06/23 08/18/23 #30 tabs aspirin 81 mg chewable tablet 81 mg PO DAILY #90 tabs 07/17/23 08/18/23 omeprazole 20 mg capsule,delayed 20 mg PO DAILY #60 caps 07/17/23 08/18/23 release losartan 50 mg tablet 50 mg PO DAILY #90 tabs 07/26/23 08/18/23 lovastatin 20 mg tablet 20 mg PO HS #90 tab-caps 07/26/23 08/18/23 cyclobenzaprine 5 mg tablet See Rx Instructions PO DAILY #30 08/18/23 08/18/23 tabs prednisone 20 mg tablet See Rx Instructions PO ONCE #15 08/18/23 08/18/23 tabs methylprednisolone 4 mg tablets in 4 mg PO DAILY #21 dose pk 08/28/23 08/28/23 a dose pack Previous Rx's Medication Instructions Recorded tadalafil 20 mg tablet 20 mg PO DAILY PRN sexual activity 04/06/23 #30 tabs aspirin 81 mg chewable tablet 81 mg PO DAILY #90 tabs 07/17/23 omeprazole 20 mg capsule,delayed 20 mg PO DAILY #60 caps 07/17/23 release losartan 50 mg tablet 50 mg PO DAILY #90 tabs 07/26/23 lovastatin 20 mg tablet 20 mg PO HS #90 tab-caps 07/26/23 cyclobenzaprine 5 mg tablet See Rx Instructions PO DAILY #30 08/18/23 tabs prednisone 20 mg tablet See Rx Instructions PO ONCE #15 08/18/23 tabs methylprednisolone 4 mg tablets in 4 mg PO DAILY #21 dose pk 08/28/23 a dose pack Allergies Allergy/AdvReac Type Severity Reaction Status Date / Time No Known Allergies Allergy Verified 08/28/23 14:40 General Stated Complaint: Abd Prob DANY: 3 Review of Systems All systems reviewed & are unremarkable except as noted in HPI and below Constitutional Constitutional: Denies chills, Denies fever(s) and Denies weakness Cardiovascular Cardiovascular: Denies chest pain and Denies dyspnea Respiratory Respiratory: Denies cough and Denies dyspnea Gastrointestinal Gastrointestinal: Reports abdominal pain, Reports nausea and Reports vomiting Genitourinary Genitourinary: Denies dysuria Integumentary/Breasts Skin/Breast: Denies rash Neurologic Neurologic: Denies weakness PFSH All Active Problems (Updated 08/30/23 @ 00:53 by Dhaval Hale MD) Small bowel obstruction (Acute) Sciatica (Acute) Left lumbosacral radiculopathy (Acute) Chronic cough (Acute) Diverticula, colon, congenital (Acute) Colon polyp (Acute) Tear of medial meniscus of left knee, current (Acute) Internal derangement of left knee (Acute) Knee pain, left (Chronic) Erectile dysfunction (Acute 07/15/15) Family hx of prostate cancer (Acute 07/04/13) father Hydrocele, left (Acute 07/15/15) Hyperlipidemia (Acute 07/04/13) Hypertension (Chronic) 03/16/17 [facility]: elevated creatinine;elevated lft's; ekg: ? old infarct Severe obstructive sleep apnea (Acute 06/03/17) 06/03/17-[facility];VERY SEVERE IN REM SLEEP Medical History Concussion Obstructed umbilical hernia (08/02/12) Surgical History History of colonoscopy (~10/30/20) Repair of inguinal hernia RIGHT Vasectomy Family History Mother Diabetes Essential hypertension Heart disease Hyperlipidemia Father Essential hypertension Heart disease Hyperlipidemia Prostate cancer Sister Essential hypertension Hyperlipidemia Sister No problems noted. Sister No problems noted. Brother Essential hypertension Hyperlipidemia Brother No problems noted. Maternal Grandfather No problems noted. Paternal Grandfather No problems noted. Maternal Grandmother Diabetes Essential hypertension Hyperlipidemia Paternal Grandmother Heart disease Breast cancer Social History (Updated 03/05/22 @ 11:11 by Karolina Bae) Smoking/Tobacco Use Status: Never Second Hand Exposure: Yes Smoking risk assessment performed?: Yes Alcohol Intake: current Alcohol Intake frequency: a few times a month Alcohol type: beer Drug use: Never Substance use type: does not use Caregiver/Support person: No Household members: spouse Housing: house Communication Needs: None Do you need help understanding health information?: Never Pets and animals: Yes Pets and animals: cat(s) and dog(s) Sexually active: Yes Do you think of yourself as: straight/heterosexual Current gender identity: male What is your relationship status?: How often do you talk on the phone with friends or family?: three or more times per week How often do you get together with friends or relatives?: three or more times per week How often do you attend caodaism or episcopalian services?: decline to answer Do you belong to any clubs or organized social groups?: no Panel score (0-1 are the most socially isolated patients): 2 Duration: > 90 minutes/day Frequency: daily Rajwinedr/Mandaeism: No preference Special rajwinder needs: No Seatbelt use: never Helmet use: Yes Helmet use: sometimes Drive 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 Do you feel safe at home: Yes Do you feel safe in your relationship?: Yes Exam Const General: no acute distress Orientation: alert HENMT Head: normal to inspection Ears: external ears normal General nose exam: external nose normal Mouth: moist mucous membranes Eyes General: appearance normal, both eyes and all related structures Neck Neck: normal visual inspection Resp Effort & Inspection: normal respiratory effort and able to speak in complete sentences Cardio Rate: regular rate GI Palpation: tender Skin General skin exam: no rashes or lesions noted Neuro General: patient alert and patient oriented x3 Extrem General: normal to inspection Psych Mental Status: mental status grossly normal Course Vital Signs Vital signs: Vital Signs Temperature 36.8 C 08/29/23 22:48 Pulse 90 08/29/23 22:48 Respiratory Rate 18 08/29/23 22:48 Blood Pressure 205/111 H 08/29/23 22:48 Pulse Oximetry 97 08/29/23 22:48 Temperature 36.8 C 08/29/23 22:48 Temperature Source Oral 08/29/23 22:48 Pulse 90 08/29/23 22:48 Respiratory Rate 18 08/29/23 22:48 Respiratory Effort Normal 08/29/23 22:52 Blood Pressure 205/111 H 08/29/23 22:48 Pulse Oximetry 97 08/29/23 22:48 Oxygen Delivery Method Room Air 08/29/23 22:48 Oxygen Flow Rate 0 08/29/23 22:48 Pain Level 8 08/29/23 22:48
[2023-08-29] MEDS: Ondansetron 4 MG/2 ML VIAL IVP (23:15)
[2023-08-29] MEDS: HYDROmorphone 2 MG/ML SYR 1 MG IVP (23:15)
[2023-08-29] MEDS: Normal Saline 1,000 ML 1000 ML IV (23:20)
[2023-08-29 23:30] LABS: Abs Immature Grans 0.04 10^3/uL (0.0-0.06); Absolute Basophil Count 0.02 10^3/uL (0.0-0.2); Absolute Lymphocyte Count 1.15 10^3/uL (1.2-3.4); Absolute Monocyte Count 0.61 10^3/uL (0.1-0.8); Basophils % 0.2; HCT 52.2 % (40.0-50.0); Immature Grans % 0.4; Lymphocytes % 10.4; MCH 29.5 pg (27.0-33.0); MCHC 33.5 % (32.0-36.0); MCV 88 fL (80-95); MPV 10.9 fL (8.0-11.0); Monocytes % 5.5; Neutrophils % 83.5; Platelet Count 161 10^3/uL (130-400); RBC 5.94 10^6/uL (4.36-5.78); RDW 11.9 % (11.8-14.1); WBC 11.07 10^3/uL (4.4-10.8)
[2023-08-29 23:31] LABS: Absolute Neutrophil Count 9.24 10^3/uL (1.2-6.7); HGB 17.5 g/dL (13.5-17.5)
[2023-08-29 23:52] LABS: ALT 50 U/L (16-63); AST 17 U/L (15-37); Albumin 4.4 g/dL (3.4-5.0); Alkaline Phosphatase 92 U/L (46-116); BUN 25 mg/dL (7-18); Bilirubin, Total 0.7 mg/dL (0.2-1.0); CREATININE 1.5 mg/dL (0.70-1.30); Calcium 10.1 mg/dL (8.5-10.1); Chloride 101 mmol/L (98-107); Glucose 132 mg/dL (74-106); Lipase 36 U/L (16-77); Magnesium 2.2 mg/dL (1.8-2.4); Potassium 4.6 mmol/L (3.5-5.1); Sodium 137 mmol/L (136-145); TSH (W/Ref FT4) 3.03 uIU/mL (0.36-3.74); Total Protein 8.4 g/dL (6.4-8.2)
[2023-08-30] VITALS (37 sets, daily range): BP systolic 110–172; BP diastolic 69–93; PULSE 56–87; RESP 11–26; TEMP 35.9–37.4; O2SAT 89–99
[2023-08-30] MEDS: Omnipaque 350 MG/ML 100 ML BTL IJ (00:01)
[2023-08-30] MEDS: Normal Saline Flush 10 ML SYR IVP ×3 (00:02→09:31)
[2023-08-30] MEDS: Normal Saline - Diluent 50 ML VIAL IJ (00:02)
--- NOTE | 2023-08-30 00:43 | DI.VRAD_ITS ---
Addendum created by Yayo Choudhury MD on 08/30/2023 12:46:09 AM EDT: THIS REPORT CONTAINS FINDINGS THAT MAY BE CRITICAL TO PATIENT CARE. The findings were verbally communicated via telephone conference with Dhaval Hale at 12:46 AM EDT on 08/30/2023. The findings were acknowledged and understood. Initial report created on 08/30/2023 12:42:54 AM EDT: PROCEDURE INFORMATION: Exam: CT Abdomen And Pelvis With Contrast Exam date and time: 08/30/2023 12:17 AM Age: 58 years old Clinical indication: Nausea and vomiting; Abdominal pain; Generalized; Prior surgery; Surgery date: 6+ months; Surgery type: Hernia repair; Patient HX: Abd pain, n/v ? sbo TECHNIQUE: Imaging protocol: Computed tomography of the abdomen and pelvis with contrast. Radiation optimization: All CT scans at this facility use at least one of these dose optimization techniques: automated exposure control; mA and/or kV adjustment per patient size (includes targeted exams where dose is matched to clinical indication); or iterative reconstruction. Contrast material: OMNIPAQUE 350; Contrast volume: 100 ml; Contrast route: INTRAVENOUS (IV); COMPARISON: MR LOWER JOINT LT WO 12/23/2019 8:07 AM FINDINGS: Liver: Normal. No mass. Gallbladder and bile ducts: Normal. No calcified stones. No ductal dilation. Pancreas: Normal. No ductal dilation. Spleen: Normal. No splenomegaly. Adrenal glands: Normal. No mass. Kidneys and ureters: Normal. No hydronephrosis. Stomach and bowel: Several moderately distended fluid-filled small bowel loops throughout the abdomen with abrupt transition to nondilated small bowel in the right mid abdomen. A few dilated small bowel loops containing fecal matter. Moderate amount of gas and stool noted in the proximal colon. Appendix: The appendix is visualized and appears normal. Intraperitoneal space: Unremarkable. No free air. No significant fluid collection. Vasculature: Moderate atherosclerotic calcification throughout the aorta and iliac arteries. No evidence of aneurysm or dissection. Lymph nodes: Unremarkable. No enlarged lymph nodes. Urinary bladder: Unremarkable as visualized. Reproductive: Unremarkable as visualized. Bones/joints: Moderate multilevel degenerative disc changes. No vertebral body compression or acute fracture. Soft tissues: Unremarkable. IMPRESSION: Findings concerning for distal small bowel obstruction with apparent transition point in the right mid abdomen (mid to distal ileum). Dictated and Authenticated by: Yayo Choudhury MD. Ordering:QUINTON Puentes MD
[2023-08-30] MEDS: Ondansetron 4 MG/2 ML VIAL IVP (00:55)
[2023-08-30 00:57] LABS: Bilirubin Negative (Negative); Blood Trace-intact (Negative); Clarity Clear (Clear); Glucose Negative (Negative); Ketones 15 mg/dL (Negative); Leukocyte Esterase Negative (Negative); Nitrite Negative (Negative); Specific Gravity 1.015 (1.005-1.025); Urobilinogen 0.2 mg/dL (Up to 0.2)
[2023-08-30] MEDS: HYDROmorphone 2 MG/ML SYR 1 MG IVP (00:58)
[2023-08-30 01:15] LABS: Bacteria Negative HPF (Negative); C & S Indicated? No; Casts Negative LPF (Negative); Crystals Negative HPF (Negative); Epithelial Cells Negative HPF (Negative); Mucus Negative (Negative); WBC 0-2 HPF (0-5)
--- NOTE | 2023-08-30 01:31 | DI.RAD_ITS ---
Exam(s) XR PORTABLE CHEST AP POST LINE EXAM: XR PORTABLE CHEST AP POST LINE CLINICAL HISTORY: ng tube placement. TECHNIQUE: 2D digital imaging was performed. COMPARISON: CR XR CHEST 2V PA LATERAL from 01/17/2022 FINDINGS: Single AP portable view. Heart size is upper normal. The mediastinum is not widened. Lungs are clear. No infiltrates nor obvious pleural effusions. There is an NG tube in good position in the stomach along the greater curvature. Stomach is not dist ended. IMPRESSION: No acute pulmonary findings on this single AP portable view of the chest. DATA REPOSITORY: RADIATION DOSE DELIVERED:
--- NOTE | 2023-08-30 01:46 | DI.VRAD_ITS ---
PROCEDURE INFORMATION: Exam: XR Chest Exam date and time: 08/30/2023 1:40 AM Age: 58 years old Clinical indication: Device placement; Patient HX: Ng tube placement TECHNIQUE: Imaging protocol: Radiologic exam of the chest. Views: 1 view. COMPARISON: CR XR CHEST 2V PA LATERAL 01/17/2022 3:49 PM FINDINGS: Tubes, catheters and devices: Esophagogastric tube in good position with the tip and side port in the stomach. Lungs: Unremarkable. No consolidation. Pleural spaces: Unremarkable. No pleural effusion. No pneumothorax. Heart/Mediastinum: Unremarkable. No cardiomegaly. Bones/joints: Moderate degenerative changes of the spine noted. IMPRESSION: Esophagogastric tube in good position. Dictated and Authenticated by: Yayo Choudhury MD. Ordering:QUINTON Puentes MD
--- NOTE | 2023-08-30 02:01 | NUR.NOTE ---
16f NG tube placed by ED MD at 64 at the nose. NG Tube placement verified by xray. NG Tube retracted to 55 at nose per ed md. NG Tube is having intermittent suction issues. Tube was irrigated with water. NG tube output is 250ml total. NG tube is on low intermittent suction Nursing Note:
[2023-08-30] MEDS: Normal Saline 1,000 ML 150 ML IV (02:48)
--- NOTE | 2023-08-30 03:21 | DI.RAD_ITS ---
Exam(s) XR PORTABLE CHEST AP POST LINE EXAM: XR PORTABLE CHEST AP POST LINE CLINICAL HISTORY: NG placement. TECHNIQUE: 2D digital imaging was performed. COMPARISON: CR,XR XR PORTABLE CHEST AP POST LINE from 08/30/2023 FINDINGS: Single AP portable view. Heart size is upper normal. The mediastinum is not widened. Lungs are clear. No infiltrates nor obvious pleural effusions. Position of the NG tube in the stomach is slightly changed but still remains in the stomach with dist al tip at the greater curvature level. IMPRESSION: No acute pulmonary findings on this single AP portable view of the chest. NG tube position as above, still within the stomach. DATA REPOSITORY: RADIATION DOSE DELIVERED:
[2023-08-30] MEDS: ACETAMINOPHEN 1,000 MG/100 ML BTL 400 MG IVPB ×2 (03:57→20:17)
[2023-08-30] MEDS: MORPHine 2 MG/ML SYR IVP (04:25)
[2023-08-30] MEDS: Prochlorperazine 10 MG/2 ML VIAL 5 MG IVP (04:27)
--- NOTE | 2023-08-30 05:46 | DI.VRAD_ITS ---
PROCEDURE INFORMATION: Exam: XR Chest Exam date and time: 08/30/2023 3:35 AM Age: 58 years old Clinical indication: Device placement; Patient HX: Recheck ng tube, concern for change in positioning since prior xray TECHNIQUE: Imaging protocol: Radiologic exam of the chest. Views: 1 view. COMPARISON: CR XR PORTABLE CHEST AP POST LINE 08/30/2023 1:40 AM FINDINGS: Tubes, catheters and devices: An enteric tube is noted with the distal tip below the level of the diaphragm in the region of the stomach. Lungs: See Heart/Mediastinum finding. Pleural spaces: No pneumothorax. No pleural effusion. Heart/Mediastinum: The heart is mildly enlarged for size, possibly exaggerated due to low lung volumes. Bones/joints: Unremarkable. IMPRESSION: An enteric tube is noted with the distal tip below the level of the diaphragm in the region of the stomach. Dictated and Authenticated by: Skip Dumont MD. Ordering:ESPERANZA Gonzalez MD
[2023-08-30 07:21] LABS: Abs Immature Grans 0.06 10^3/uL (0.0-0.06); Absolute Basophil Count 0.03 10^3/uL (0.0-0.2); Absolute Lymphocyte Count 0.44 10^3/uL (1.2-3.4); Absolute Neutrophil Count 12.89 10^3/uL (1.2-6.7); Basophils % 0.2; HCT 46.3 % (40.0-50.0); HGB 15.3 g/dL (13.5-17.5); Immature Grans % 0.4; Lymphocytes % 3.1; MCH 29.6 pg (27.0-33.0); MCV 90 fL (80-95); MPV 11.8 fL (8.0-11.0); Neutrophils % 90.3; Platelet Count 134 10^3/uL (130-400); RBC 5.17 10^6/uL (4.36-5.78); RDW 11.9 % (11.8-14.1); RDW-SD 39.4 fL; WBC 14.27 10^3/uL (4.4-10.8)
[2023-08-30 07:24] LABS: Absolute Monocyte Count 0.86 10^3/uL (0.1-0.8)
[2023-08-30 07:45] LABS: ALT 42 U/L (16-63); AST 15 U/L (15-37); Albumin 3.6 g/dL (3.4-5.0); Alkaline Phosphatase 76 U/L (46-116); BUN 24 mg/dL (7-18); Bilirubin, Total 0.4 mg/dL (0.2-1.0); CREATININE 1.1 mg/dL (0.70-1.30); Calcium 8.8 mg/dL (8.5-10.1); Chloride 105 mmol/L (98-107); Estimated GFR 77.33 (mL/min/1.73m2); Glucose 200 mg/dL (74-106); Potassium 4.4 mmol/L (3.5-5.1); Sodium 138 mmol/L (136-145); Total Protein 6.9 g/dL (6.4-8.2); Troponin I < 50 ng/L (<or=60)
--- NOTE | 2023-08-30 08:00 | RESPIRATORY ---
Addendum entered by Emili Zamora 08/30/23 13:38: [employer] Auto CPAP 6-16, Resmed Airfit N20 Nasal Mask Size Medium Original Note: Patient has home CPAP machine through [employer] which he will have someone bring in for him to use this admission
[2023-08-30] MEDS: Pantoprazole 40 MG VIAL IVP (09:31)
[2023-08-30] MEDS: Enoxaparin 40 MG/0.4 ML SYR SC (09:32)
--- NOTE | 2023-08-30 09:40 | PDOC.CMIN ---
Date of service: 08/30/23 Time of Service: 09:40 Care Management Initial Assmt Initial Assessment REASON FOR HOSPITALIZATION:: SBO PREVIOUS FUNCTIONAL STATUS/SOCIAL/FAMILY SUPPORTS:: Terry lives in [place] with his Margaret. He has local family and friends that are supportive. 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 CURRENT FUNCTIONAL STATUS:: Terry was sitting in his chair when CM met with him. He is awake, alert and easily engages in conversation. He is being closely followed by Surgical Team and has no questions or concerns. He will not need a work note on discharge. ADVANCE DIRECTIVES:: None of file Has patient been provided with info about the portal/API?: Yes Did the patient sign up for the portal?: No CODE STATUS:: Full Code INSURANCE COVERAGE / FINANCIAL ISSUES:: BS of OR CURRENT HOME/COMMUNITY SERVICES/EQUIPMENT:: None PRIMARY CARE PHYSICIAN:: Aj Rucker POTENTIAL DISCHARGE NEEDS:: Follow up appointments, discharge plan of care PATIENT/FAMILY EDUCATION NEEDS:: Review discharge instructions, limitations, medications and plan to follow up with community providers. Discuss ask me three. ANTICIPATED BARRIERS TO DISCHARGE:: None identified TRANSPORTATION:: Via private vehicle with family PLAN:: Anticipate Mo will discharge home via private vehicle with his . He will follow up with community providers and his discharge plan of care as instructed. No new [facility] services are anticipated at this time. CM will follow. [facility] All Active Problems (Updated 08/30/23 @ 00:53 by Dhaval Hale MD) Small bowel obstruction (Acute) Sciatica (Acute) Left lumbosacral radiculopathy (Acute) Chronic cough (Acute) Diverticula, colon, congenital (Acute) Colon polyp (Acute) Tear of medial meniscus of left knee, current (Acute) Internal derangement of left knee (Acute) Knee pain, left (Chronic) Erectile dysfunction (Acute 07/15/15) Family hx of prostate cancer (Acute 07/04/13) father Hydrocele, left (Acute 07/15/15) Hyperlipidemia (Acute 07/04/13) Hypertension (Chronic) 03/16/17 [facility]: elevated creatinine;elevated lft's; ekg: ? old infarct Severe obstructive sleep apnea (Acute 06/03/17) 06[facility]03/17[facility]VERY SEV[facility] IN REM SLEEP Medical History Concussion Obstructed umbilical hernia (08/02/12) Surgical History History of colonoscopy (~10/30/20) Repair of inguinal hernia RIGHT Vasectomy Family History Mother Diabetes Essential hypertension Heart disease Hyperlipidemia Father Essential hypertension Heart disease Hyperlipidemia Prostate cancer Sister Essential hypertension Hyperlipidemia Sister No problems noted. Sister No problems noted. Brother Essential hypertension Hyperlipidemia Brother No problems noted. Maternal Grandfather No problems noted. Paternal Grandfather No problems noted. Maternal Grandmother Diabetes Essential hypertension Hyperlipidemia Paternal Grandmother Heart disease Breast cancer Social History (Updated 03/05/22 @ 11:11 by Karolina Bae) Smoking/Tobacco Use Status: Never Second Hand Exposure: Yes Smoking risk assessment performed?: Yes Alcohol Intake: current Alcohol Intake frequency: a few times a month Alcohol type: beer Drug use: Never Substance use type: does not use Caregiver/Support person: No Household members: spouse Housing: house Communication Needs: None Do you need help understanding health information?: Never Pets and animals: Yes Pets and animals: cat(s) and dog(s) Sexually active: Yes Do you think of yourself as: straight/heterosexual Current gender identity: male What is your relationship status?: How often do you talk on the phone with friends or family?: three or more times per week How often do you get together with friends or relatives?: three or more times per week How often do you attend restorationism or anglican services?: decline to answer Do you belong to any clubs or organized social groups?: no Panel score (0-1 are the most socially isolated patients): 2 Duration: > 90 minutes/day Frequency: daily Rajwinder/Gnosticist: No preference Special rajwinder needs: No Seatbelt use: never Helmet use: Yes Helmet use: sometimes 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
--- NOTE | 2023-08-30 09:45 | W.PM.HP.N ---
Date of service: 08/30/23 Time of Service: 09:46 Assessment and Plan Assessment and plan (1) Small bowel obstruction: Status: Acute Assessment and plan: Continue with pain control, bowel rest and IV hydration. Hopefully the small bowel obstruction will resolve with medical management. Strongly encouraged activity out of bed such as sitting in the chair and ambulation throughout the day as tolerated. Phenergan is ordered as needed for nausea Bisacodyl suppositories were also ordered PRN. Discussed with the patient that if he elects to trial a suppository, rectal stimulation may help promote decompression from below. Prontonix for GI prophylaxis History of Present Illness Narrative: 58-year-old male with a history of severe JULIETTE, hypertension, hyperlipidemia and low back pain presents to the ER with complaints of abdominal pain that had been occurring all day however significantly worsened after dinner. He describes that after dinner he also had nausea and vomiting. He denies any fevers, chills, chest pain or shortness of breath. CT scan in the ER was remarkable for small bowel obstruction in the right mid abdomen. NG tube was placed and on intermittent suction. Patient reports that his nausea and abdominal discomfort has improved. He states that this is the third time that this is occurred. He describes that his only abdominal surgery was laparoscopic umbilical hernia repair in 2011. In further investigation the patient has also undergone laparoscopic lysis of adhesions in October 2012 due to patient having a partial small bowel obstruction. Of note patient reports that approximately 2 weeks ago he had experienced severe abdominal pain associated with nausea and vomiting that he describes was the worst experience he has ever had. He states that this resolved prior to this occurrence. He describes that his last bowel movement was last evening on 08/29. And he last ate dinner yesterday. [facility] All Active Problems (Updated 08/30/23 @ 00:53 by Dhaval Hale MD) Small bowel obstruction (Acute) Sciatica (Acute) Left lumbosacral radiculopathy (Acute) Chronic cough (Acute) Diverticula, colon, congenital (Acute) Colon polyp (Acute) Tear of medial meniscus of left knee, current (Acute) Internal derangement of left knee (Acute) Knee pain, left (Chronic) Erectile dysfunction (Acute 07/15/15) Family hx of prostate cancer (Acute 07/04/13) father Hydrocele, left (Acute 08/19/15) Hyperlipidemia (Acute 07/04/13) Hypertension (Chronic) 03/16/17 [facility]: elevated creatinine;elevated lft's; ekg: ? old infarct Severe obstructive sleep apnea (Acute 06/03/17) 06/03/17-[facility];VERY SEVERE IN REM SLEEP Medical History Concussion Obstructed umbilical hernia (08/02/12) Surgical History History of colonoscopy (~10/30/20) Repair of inguinal hernia RIGHT Vasectomy Family History Mother Diabetes Essential hypertension Heart disease Hyperlipidemia Father Essential hypertension Heart disease Hyperlipidemia Prostate cancer Sister Essential hypertension Hyperlipidemia Sister No problems noted. Sister No problems noted. Brother Essential hypertension Hyperlipidemia Brother No problems noted. Maternal Grandfather No problems noted. Paternal Grandfather No problems noted. Maternal Grandmother Diabetes Essential hypertension Hyperlipidemia Paternal Grandmother Heart disease Breast cancer Social History (Updated 03/05/22 @ 11:11 by Karolina Bae) Smoking/Tobacco Use Status: Never Second Hand Exposure: Yes Smoking risk assessment performed?: Yes Alcohol Intake: current Alcohol Intake frequency: a few times a month Alcohol type: beer Drug use: Never Substance use type: does not use Caregiver/Support person: No Household members: spouse Housing: house Communication Needs: None Do you need help understanding health information?: Never Pets and animals: Yes Pets and animals: cat(s) and dog(s) Sexually active: Yes Do you think of yourself as: straight/heterosexual Current gender identity: male What is your relationship status?: How often do you talk on the phone with friends or family?: three or more times per week How often do you get together with friends or relatives?: three or more times per week How often do you attend islam or advent services?: decline to answer Do you belong to any clubs or organized social groups?: no Panel score (0-1 are the most socially isolated patients): 2 Duration: > 90 minutes/day Frequency: daily Rajwinder/Cheondoism: No preference Special rajwinder needs: No Seatbelt use: never Helmet use: Yes Helmet use: sometimes Drive 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 inventory associate and driver: No Do you feel safe at home: Yes Do you feel safe in your relationship?: Yes Meds Allergies and Home Medications Allergies Allergy/AdvReac Type Severity Reaction Status Date / Time No Known Allergies Allergy Verified 08/28/23 14:40 Home Medications Medication Instructions Recorded Confirmed Type Motrin 600 mg PO TID PRN 05/27/13 08/30/23 History fish oil-dha-epa 1,200 mg-144 1 ea PO DAILY 05/27/13 08/30/23 History mg-216 mg capsule C-Pap 07/25/17 08/18/23 History tadalafil 20 mg tablet 20 mg PO DAILY PRN sexual activity 04/06/23 08/30/23 Rx #30 tabs aspirin 81 mg chewable tablet 81 mg PO DAILY #90 tabs 07/17/23 08/30/23 Rx omeprazole 20 mg capsule,delayed 20 mg PO DAILY #60 caps 07/17/23 08/30/23 Rx release losartan 50 mg tablet 50 mg PO DAILY #90 tabs 07/26/23 08/30/23 Rx lovastatin 20 mg tablet 20 mg PO HS #90 tab-caps 07/26/23 08/30/23 Rx cyclobenzaprine 5 mg tablet See Rx Instructions PO DAILY #30 08/18/23 08/30/23 Rx tabs prednisone 20 mg tablet See Rx Instructions PO ONCE #15 08/18/23 08/18/23 Rx tabs methylprednisolone 4 mg tablets in 4 mg PO DAILY #21 dose pk 08/28/23 08/30/23 Rx a dose pack Exam Const General: cooperative, comfortable and ill appearing Orientation: alert and oriented x3 Resp Effort & Inspection: normal respiratory effort, no audible wheezes and no cough GI Inspection: distended Palpation: soft, no guarding and tender Results Labs 08/30/23 05:24 08/30/23 05:24 Labs: Laboratory Results - last 24 hr 08/29/23 08/29/23 08/29/23 23:18 23:18 23:18 WBC 11.07 H RBC 5.94 H Hgb 17.5 Hct 52.2 H MCV 88 MCH 29.5 MCHC 33.5 RDW 11.9 Plt Count 161 MPV 10.9 Immature Gran % 0.4 Neutrophils % 83.5 Lymphocytes % 10.4 Monocytes % 5.5 Eosinophils % 0.0 Basophils % 0.2 Nucleated RBC % 0.0 Absolute Neutrophils 9.24 H Absolute Lymphocytes 1.15 L Absolute Monocytes 0.61 Absolute Eosinophils 0.00 Absolute Basophils 0.02 VBG Lactate 1.0 Sodium 137 Potassium 4.6 Chloride 101 Carbon Dioxide 29.0 Anion Gap 7.0 BUN 25 H Creatinine 1.5 H Est GFR (CKD-EPI 2020) 53.30 Glucose 132 H Calcium 10.1 Magnesium 2.2 Total Bilirubin 0.7 AST 17 ALT 50 Alkaline Phosphatase 92 Troponin I Total Protein 8.4 H Albumin 4.4 Lipase 36 TSH 3.03 Urine Color Urine Clarity Urine pH Ur Specific [place] Urine Protein Urine Ketones Urine Blood Urine Nitrite Urine Bilirubin Urine Urobilinogen Ur Leukocyte Esterase Urine RBC Urine WBC Ur Epithelial Cells Urine Crystals Urine Bacteria Urine Casts Urine Mucus Ur Culture Indicated? Urine Glucose 08/30/23 08/30/23 08/30/23 00:48 05:24 05:24 WBC 14.27 H RBC 5.17 Hgb 15.3 D Hct 46.3 MCV 90 MCH 29.6 MCHC 33.0 RDW 11.9 Plt Count 134 MPV 11.8 H Immature Gran % 0.4 Neutrophils % 90.3 Lymphocytes % 3.1 Monocytes % 6.0 Eosinophils % 0.0 Basophils % 0.2 Nucleated RBC % 0.0 Absolute Neutrophils 12.89 H Absolute Lymphocytes 0.44 L Absolute Monocytes 0.86 H Absolute Eosinophils 0.00 Absolute Basophils 0.03 VBG Lactate Sodium 138 Potassium 4.4 Chloride 105 Carbon Dioxide 25.0 Anion Gap 8.0 BUN 24 H Creatinine 1.1 Est GFR (CKD-EPI 2020) 77.33 Glucose 200 H Calcium 8.8 Magnesium Total Bilirubin 0.4 AST 15 ALT 42 Alkaline Phosphatase 76 Troponin I < 50 Total Protein 6.9 Albumin 3.6 Lipase TSH Urine Color Yellow Urine Clarity Clear Urine pH 7.0 Ur Specific [place] 1.015 Urine Protein 30 H Urine Ketones 15 H Urine Blood Trace-intact H Urine Nitrite Negative Urine Bilirubin Negative Urine Urobilinogen 0.2 Ur Leukocyte Esterase Negative Urine RBC 3-5 H Urine WBC 0-2 Ur Epithelial Cells Negative Urine Crystals Negative Urine Bacteria Negative Urine Casts Negative Urine Mucus Negative Ur Culture Indicated? No Urine Glucose Negative 08/30/23 05:24 WBC RBC Hgb Hct MCV MCH MCHC RDW Plt Count MPV Immature Gran % Neutrophils % Lymphocytes % Monocytes % Eosinophils % Basophils % Nucleated RBC % Absolute Neutrophils Absolute Lymphocytes Absolute Monocytes Absolute Eosinophils Absolute Basophils VBG Lactate Sodium Potassium Chloride Carbon Dioxide Anion Gap BUN Creatinine Est GFR (CKD-EPI 2020) Glucose Calcium Magnesium 2.0 Total Bilirubin AST ALT Alkaline Phosphatase Troponin I Total Protein Albumin Lipase TSH Urine Color Urine Clarity Urine pH Ur Specific [place] Urine Protein Urine Ketones Urine Blood Urine Nitrite Urine Bilirubin Urine Urobilinogen Ur Leukocyte Esterase Urine RBC Urine WBC Ur Epithelial Cells Urine Crystals Urine Bacteria Urine Casts Urine Mucus Ur Culture Indicated? Urine Glucose Last Vital Signs Temp 36.6 C 08/30/23 07:45 Pulse 67 08/30/23 08:01 Resp 26 H 08/30/23 08:01 BP 129/82 08/30/23 08:01 Pulse Ox 95 08/30/23 08:01 PAWSS Have you Been Recently Intoxicated or Drunk Within the Last 30 days?: No Have you Ever Experienced Previous Episodes of Alcohol Withdrawal?: No Have you ever Experienced Withdrawal Seizures?: No Have you ever Experienced Delirium Tremens(DT)s?: No Have you ever undergone Alcohol Rehabilitation Treatment (i.e, inpt ot outpatient treatment programs)?: No Have you ever Experienced Blackouts?: No Have you ever Combined Alcohol with other Downers within the last 90 days?: No Have you ever Combined Alcohol with any other Substance of Abuse during the last 90 days?: No Positive Blood Alcohol level on Presentation? [PCS.BAL]: No Evidence of Increased Autonomic Activity (i.e. HR>120, tremor, sweating, agitation, nausea)?: No Result: 0 Time Spent Time spent with Patient: <40 minutes Time was spent: preparing to see the patient(eg.review tests), obtaining and/or reviewing separately otained hiistory, ordering medications,tests, procedures and counseling the patient
[2023-08-30 10:26] LABS: Source Nasal/Nares
[2023-08-30 11:03] LABS: COVID-19 PCR Negative (Negative)
[2023-08-30] MEDS: Normal Saline 1,000 ML 100 ML IV ×2 (12:09→23:33)
[2023-08-30] MEDS: Bisacodyl 10 MG SUPP PR (14:26)
[2023-08-30] MEDS: Chloraseptic Spray 117 ML BTL MM (16:22)
[2023-08-31] VITALS (7 sets, daily range): BP systolic 127–168; BP diastolic 77–90; PULSE 66–72; RESP 13–18; TEMP 36.7–37.1; O2SAT 95–98
--- NOTE | 2023-08-31 07:46 | W.PM.PROGNOT ---
Date of Service Date of service: 08/31/23 Time of Service: 07:46 Assessment and Plan Assessment and plan (1) Small bowel obstruction: Status: Acute Assessment and plan: Given Galo improvement in his symptoms it does appear that the SBO is starting to resolve. He denies having any abdominal pain, nausea or vomiting. Strongly encouraged him to continue with his ambulation and sitting in the chair throughout the day. He may have sips of water and ice chips throughout the morning. If he continues to feel well we will advance diet slowly Prontonix for GI prophylaxis Subjective Subjective Interval history since last seen: Terry is reporting that he is feeling improved today. He states that he has been having some liquid BMs. He was able to get some sleep last night and is feeling better overall. He denies any fevers, chills or night sweats. Exam Const General: cooperative, healthy appearing and comfortable Orientation: alert and oriented x3 Resp Effort & Inspection: normal respiratory effort, no audible wheezes and no cough GI Inspection: normal to inspection and non-distended Palpation: soft, no guarding and nontender Auscultation: normal bowel sounds Objective Last Vital Signs Temp 36.8 C 08/31/23 00:01 Pulse 67 08/31/23 07:22 Resp 14 08/31/23 00:01 BP 150/90 H 08/31/23 07:22 Pulse Ox 95 08/31/23 07:22 Laboratory Results - last 24 hr 08/30/23 08/30/23 08/30/23 05:24 05:24 10:20 Sodium 138 Potassium 4.4 Chloride 105 Carbon Dioxide 25.0 Anion Gap 8.0 BUN 24 H Creatinine 1.1 Est GFR (CKD-EPI 2020) 77.33 Glucose 200 H Calcium 8.8 Magnesium 2.0 Total Bilirubin 0.4 AST 15 ALT 42 Alkaline Phosphatase 76 Troponin I < 50 Total Protein 6.9 Albumin 3.6 COVID-19 Source Nasal/Nares SARS-CoV-2 (PCR) Negative PAWSS Have you Been Recently Intoxicated or Drunk Within the Last 30 days?: No Have you Ever Experienced Previous Episodes of Alcohol Withdrawal?: No Have you ever Experienced Withdrawal Seizures?: No Have you ever Experienced Delirium Tremens(DT)s?: No Have you ever undergone Alcohol Rehabilitation Treatment (i.e, inpt ot outpatient treatment programs)?: No Have you ever Experienced Blackouts?: No Have you ever Combined Alcohol with other Downers within the last 90 days?: No Have you ever Combined Alcohol with any other Substance of Abuse during the last 90 days?: No Positive Blood Alcohol level on Presentation? [PCS.BAL]: No Evidence of Increased Autonomic Activity (i.e. HR>120, tremor, sweating, agitation, nausea)?: No Result: 0 Time Spent with Patient Time Spent with Patient: <25 minutes Time was spent: preparing to see the patient(eg.review tests) and counseling the patient
[2023-08-31] MEDS: Enoxaparin 40 MG/0.4 ML SYR SC (07:52)
[2023-08-31] MEDS: Pantoprazole 40 MG VIAL IVP (07:52)
[2023-08-31] MEDS: Normal Saline Flush 10 ML SYR IVP (07:52)
[2023-08-31] MEDS: Normal Saline 1,000 ML 100 ML IV ×2 (10:56→22:51)
--- NOTE | 2023-08-31 14:14 | CMPROGNOTE_ITS ---
Date of service: 08/31/23 Time of Service: 14:14 Care Management Progress Note Progress Note Text Progress Note Text: S/O: Mo continues to be closely monitored in the ICU. He was sitting in a chair and is awake and engages in conversation. He is still NPO, other than ice chips. He walked the hallway several times today and is feeling a bit better today. He met with Surgical provider this morning and per report Given Galo improvement in his symptoms it does appear that the SBO is starting to resolve. Mo is planning on seeing surgical provider again this afternoon. He has no questions or concerns at this time. A: 58 year old male admitted to [facility] 08/29/23 with a SBO P: Anticipate Mo will discharge home via private vehicle with his . He will follow up with his PCP and Surgery and his discharge plan of care as instructed. No new [facility] services are anticipated at this time. CM will follow.
[2023-09-01 02:54] VITALS: BP 169/99; PULSE 66; RESP 17; TEMP 36.1; O2SAT 99
[2023-09-01] MEDS: Normal Saline 1,000 ML 100 ML IV (07:28)
[2023-09-01 07:36] VITALS: BP 169/100; PULSE 64; RESP 18; TEMP 36.8; O2SAT 98
[2023-09-01] MEDS: Normal Saline Flush 10 ML SYR IVP (08:00)
[2023-09-01] MEDS: Pantoprazole 40 MG VIAL IVP (08:00)
[2023-09-01] MEDS: Enoxaparin 40 MG/0.4 ML SYR SC (08:01)
[2023-09-01 09:29] VITALS: BP 169/100; PULSE 66
[2023-09-01] MEDS: Metoprolol 5 MG/5 ML VIAL IVP (09:29)
[2023-09-01 10:43] VITALS: BP 170/98
[2023-09-01 11:21] VITALS: BP 198/92; PULSE 18; RESP 18; TEMP 36.2; O2SAT 98
--- NOTE | 2023-09-01 12:35 | PDOC.CMPRO ---
Date of service: 09/01/23 Time of Service: 12:35 Care Management Progress Note Progress Note Text Progress Note Text: S/O: Mo continues to require hospitalization and transitioned to the MS floor yesterday. He was sitting in a chair visiting with his son when CM met with him. Per pt, he is feeling much better today and noted that he had 2 BM's this morning. Mo expresses that he is eager to discharge home. Per surgical provider, likely patient will not be ready for discharge today since he is still on clear liquids. CM will follow. A: 58 year old male admitted to [facility] 08/29/23 with a SBO P: Anticipate Mo will discharge home via private vehicle with his . He will follow up with his PCP and Surgery and his discharge plan of care as instructed. No new [facility] services are anticipated at this time. CM will follow.
--- NOTE | 2023-09-01 12:37 | W.PM.PROGNOT ---
Date of Service Date of service: 09/01/23 Time of Service: 12:37 Assessment and Plan Assessment and plan (1) Small bowel obstruction: Status: Acute Assessment and plan: Resolved at this time. We discussed the importance of following a high-fiber diet and making sure that he drinks plenty of fluids. We discussed the importance of daily bowel movements and MiraLAX as needed. He should maintain a high-fiber diet at baseline. See discharge instructions (2) Hydrocele, left: Status: Acute (3) Hyperlipidemia: Status: Acute (4) Hypertension: Status: Chronic (5) Severe obstructive sleep apnea: Status: Acute Subjective Subjective Interval history since last seen: Pt is doing well. no headaches. No CP or SOB. no productive cough. no dysuria. no leg pain or swelling. Patient has no abdominal pain. He tolerated a soft diet today he had 2 small bowel movements today. Exam Const General: cooperative and comfortable Nutritional Appearance: overweight Orientation: alert, awake and oriented x3 Other: PHYSICAL EXAM LUNGS: normal respiration/normal chest excursion. ?Clear to auscultation bilaterally. ?No wheeze. ?HEART: Regular rate and rhythm. no murmurs EXTREMITY: No edema or cyanosis.? no leg pain, redness, swelling.? ABDOMEN: soft and non-tender to palpation.? Normal bowel sounds.? No hernias.? Postsurgical changes noted Objective Last Vital Signs Temp 36.2 C L 09/01/23 11:21 Pulse 18 L 09/01/23 11:21 Resp 18 09/01/23 11:21 BP 198/92 H 09/01/23 11:21 Pulse Ox 98 09/01/23 11:21 PAWSS Have you Been Recently Intoxicated or Drunk Within the Last 30 days?: No Have you Ever Experienced Previous Episodes of Alcohol Withdrawal?: No Have you ever Experienced Withdrawal Seizures?: No Have you ever Experienced Delirium Tremens(DT)s?: No Have you ever undergone Alcohol Rehabilitation Treatment (i.e, inpt ot outpatient treatment programs)?: No Have you ever Experienced Blackouts?: No Have you ever Combined Alcohol with other Downers within the last 90 days?: No Have you ever Combined Alcohol with any other Substance of Abuse during the last 90 days?: No Positive Blood Alcohol level on Presentation? [PCS.BAL]: No Evidence of Increased Autonomic Activity (i.e. HR>120, tremor, sweating, agitation, nausea)?: No Result: 0 Time Spent with Patient Time Spent with Patient: <25 minutes Time was spent: preparing to see the patient(eg.review tests), obtaining and/or reviewing separately otained hiistory, ordering medications,tests, procedures, referring, communicating with other health critical care cns, indepentently interpreting results, counseling the patient and care coordination
--- NOTE | 2023-09-01 12:45 | DSE_ITS ---
Date of service: 09/01/23 Time of Service: 12:46 DS: Diagnosis Discharge Diagnosis (1) Small bowel obstruction: Status: Acute Discharge Plan Disposition Patient Disposition: Home Condition: Stable Condition: Improving Discharge Details Reason For Visit: Small bowel obstruction Admit Date/Time: 08/31/23 09:02 Admit Provider: Lisa Schroeder Attending Provider: Lisa Schroeder Primary Care Provider: Aj Rucker Hospital Course Hospital Course: see addendum Home Meds and New Rx's Prescriptions: No Action cyclobenzaprine 5 mg tablet See Rx Instructions PO DAILY Qty: 30 1RF Rx Instructions: 1-2 pills at bedtime as needed. 1 pill every 8 hours during the day as needed for additional pain relief orally daily; prednisone 20 mg tablet See Rx Instructions PO ONCE Qty: 15 0RF Rx Instructions: Take 3 pills today and then 2 pills every morning for 6 more days. orally once; methylprednisolone 4 mg tablets,dose pack 4 mg PO DAILY Qty: 21 0RF aspirin 81 mg tablet,chewable 81 mg PO DAILY Qty: 90 3RF omeprazole 20 mg capsule,delayed release(DR/EC) 20 mg PO DAILY Qty: 60 0RF fish oil-dha-epa 1 EACH capsule 1 ea PO DAILY MOTRIN 600 MG tablet 600 mg PO TID PRN c-pap tadalafil 20 mg tablet 20 mg PO DAILY PRN (Reason: sexual activity) Qty: 30 3RF Rx Instructions: administer approximately 30min before sexual activity; do not use more than 1 dose per 24hrs losartan 50 mg tablet 50 mg PO DAILY Qty: 90 3RF lovastatin 20 mg tablet 20 mg PO HS Qty: 90 12RF Discharge Instructions Instructions: Bowel Obstruction (GEN) Additional Instructions: -No changes in any of your medications -No driving for 24 hrs or of you are taking narcotic pain medications. -8-12 glasses of water daily. -soft diet: No beef/pork raw vegetables x 72 hrs- see below. Cooked vegetables are fine -no straining to move bowels. Miralax as needed for daily BM. You may find that your appetite is smaller. Eat 3-6 small meals throughout the day. It is important to drink lots of water after surgery, 6-10 glasses a day. -If you were given an incentive spirometry (breathing taxi dancer?), continue to do this 10x/hour while awake. -We do want you up walking, at least 5-6 times per day. This is very important to prevent pneumonia and blood clots. You can climb stairs, take them slowly. -No strenuous activity over the weekend. -You may find that you are very tired after being in the hospital for- this is normal. -please do not smoke for a minimum of 72 hours after surgery. .Gastrointestinal Soft Diet Overview Overview What is a gastrointestinal soft diet? This diet is soft in texture, low in fiber, and easy to digest. The goal is to decrease) ?in the bowel that may cause and discomfort. This diet is often used after abdominal surgery or as a transitional diet after flares. Meats & Meat Substitutes ?? Foods Allowed: Chicken, turkey, fish, tender cuts of beef and pork, ground meats, eggs, creamy nut butters, tofu, skinless hot dogs, sausage patties without whole spices ?? Foods to Avoid : Tough, fibrous meats with gristle, meat with casings (hot dogs, sausage, kielbasa), lunch meats with whole spices, shellfish, beans, chunky peanut butter, nuts Fruits and Juices ?? Foods Allowed: Fruit juices without pulp, banana, avocado, applesauce, canned peaches and pears, cooked fruit without the skin/seeds.? Ground or over- cooked fruits.? Fruits ground finely in a ?smoothie?. ?? Foods to Avoid: Juices with pulp, fresh fruit (except banana and avocado), dried fruits, canned fruit cocktail and pineapple, coconut, frozen/thawed berries Vegetables ?? Foods Allowed: Well-cooked or canned vegetables, potatoes without skin, tomato sauces, vegetable juice ?? Foods to Avoid: Raw vegetables, all corn, all mushrooms, stewed tomatoes, potato skins, stir-ruiz vegetables, sauerkraut, pickles, olives, all dried beans, peas, and legumes Cereals and Grains ?? Foods Allowed: Low- fiber dry or cooked cereals (less than 2 grams fiber per serving), white rice, pasta, macaroni, or noodles ?? Foods to Avoid: Cereals with nuts, berries, dried fruits, whole grain cereals , bran cereals, granola, brown or wild rice, whole grain pasta Breads and Crackers ?? Foods Allowed: White/refined breads and rolls, plain bagel, toast, plain crackers, ambar crackers ?? Foods to Avoid: Whole grain breads- including white whole grain; bread/ rolls with raisins, nuts or seeds, multi-grain crackers Dairy ?? Foods Allowed: Milk, cheese, yogurt, milkshakes, pudding, ice cream, cottage cheese, sherbet ;?lactose free or low lactose versions if lactose intolerant ?? Foods to Avoid: Dairy product mixed with fresh fruit (except banana), jr meliton, nuts or seeds Desserts ?? Foods Allowed: Plain cake, pudding, custard, ice cream, sherbet, gelatin, fruit whips ?? Foods to Avoid: Any dessert that contains nuts, dried fruits, coconut, or fruits with seeds Herbs and Spices ?? Foods Allowed: All ground spices or herbs, salt ?? Foods to Avoid: Whole spices such as peppercorns, whole cloves, anise seeds, celery seeds, michel, norm seeds, and fresh herbs Snacks/Other Foods ?? Foods Allowed: Sugar, honey, jelly, mayonnaise, mustard, soy sauce, oil, butter, margarine, marshmallows, cookies without dried fruits or nuts, snack chips and pretzels using refined flours ?? Foods to Avoid: Carbonated beverages, jams or jellies with seeds, popcorn After several weeks, slowly start to reintroduce the ?Foods to Avoid? back into your diet unless your doctor has told you otherwise. Try a small portion of one of these foods each day. If it does not bother you within 24 hours, it can be added to your diet. Continue to add new foods in this way. Some people may continue to have food sensitivities and may need to continue to avoid certain foods. If you cannot tolerate a food, avoid that food for a few weeks before you try it again. Guidelines when eating 1.??? Avoid any food that you cannot tolerate or that causes gas, bloating, or stomach pain. 2.??? Make time for your meals. Do not eat while you are in a hurry. Cut your food into small pieces. Chew each bite to a mashed potato consistency. Do not eat when you cannot concentrate on chewing well. 3.??? Drink at least 6-8 cups of fluid per day? Fluids include: water, coffee, tea, juice, milk, popsicles, soups, gelatin, pudding, ice cream, sherbet, and yogurt. In addition, choose caffeine-free beverages more often, especially if you are having?diarrhea. 4.??? A daily multivitamin may be recommended if diet is limited in amounts or variety of foods. Do not take any herbal supplements without first checking with your doctor. Referrals: [facility] Diagnostic Imaging [Other] - 09/12/23 7:30 am (MRI appointment time is 7:45am. Please arrive at 7:30am.) Activity:: See above Equipment/Supplies:: No Equipment Needed Diet:: See above DS: Summary Time Spent with Patient providing and/or coordinating discharge services: Less than 30 minutes Status at Discharge Functional status at discharge: independent ambulation Overall status at discharge: patient is progressing back to baseline Mental Status: mental status grossly normal Speech and Movement: speech and movement normal Mood: congruent mood Affect: normal affect Exam Psych Mental Status: mental status grossly normal Speech and Movement: speech and movement normal Mood: congruent mood Affect: normal affect DS: Data Vitals/I&O Vitals and I&O: Vital Signs Temperature 36.2 C L 09/01/23 11:21 Temperature Source Tympanic 09/01/23 11:21 Pulse 18 L 09/01/23 11:21 Pulse Rhythm Regular 09/01/23 08:38 Pulse 72 08/31/23 15:21 Respiratory Rate 18 09/01/23 11:21 Respiratory Effort Normal 09/01/23 08:38 Respiratory Depth Normal 09/01/23 08:38 Respiratory Pattern Normal 09/01/23 08:38 Blood Pressure 198/92 H 09/01/23 11:21 Blood Pressure Mean 105 08/31/23 15:21 Blood Pressure Position Sitting 08/31/23 07:26 Pulse Oximetry 98 09/01/23 11:21 Oxygen Delivery Method Room Air 09/01/23 11:21 Oxygen Flow Rate 0 09/01/23 11:21 Pain Level 0 09/01/23 11:21 Comment bp relayed to RN 09/01/23 11:21 Intake & Output 08/31/23 09/01/23 09/01/23 23:59 11:59 23:59 Intake Total 2250 / 3470 1923.334 / 1923.334 Balance 2250 / 2710 1923.334 / 1923.334 Weight 85.2 kg Intake: IV 1999 / 3100 1723.334 / 1723.334 Oral 250 / 370 200 / 200 Other: Urine Color Yellow Yellow Urine Appearance Clear Comment patient independent in room. Stool Size Moderate Stool Characteristics Formed Voiding Methods Toilet Toilet PFSH All Active Problems Small bowel obstruction (Acute) Sciatica (Acute) Left lumbosacral radiculopathy (Acute) Chronic cough (Acute) Diverticula, colon, congenital (Acute) Colon polyp (Acute) Tear of medial meniscus of left knee, current (Acute) Internal derangement of left knee (Acute) Knee pain, left (Chronic) Erectile dysfunction (Acute 07/15/15) Family hx of prostate cancer (Acute 07/04/13) father Hydrocele, left (Acute 07/15/15) Hyperlipidemia (Acute 07/04/13) Hypertension (Chronic) 03/16/17 [facility]: elevated creatinine;elevated lft's; ekg: ? old infarct Severe obstructive sleep apnea (Acute 06/03/17) 06/03/17-COUNT INCLUDES THE [facility];VERY SEVERE IN REM SLEEP Medical History Concussion Obstructed umbilical hernia (08/02/12) Surgical History History of colonoscopy (~10/30/20) Repair of inguinal hernia RIGHT Vasectomy Family History Mother Diabetes Essential hypertension Heart disease Hyperlipidemia Father Essential hypertension Heart disease Hyperlipidemia Prostate cancer Sister Essential hypertension Hyperlipidemia Sister No problems noted. Sister No problems noted. Brother Essential hypertension Hyperlipidemia Brother No problems noted. Maternal Grandfather No problems noted. Paternal Grandfather No problems noted. Maternal Grandmother Diabetes Essential hypertension Hyperlipidemia Paternal Grandmother Heart disease Breast cancer Social History Smoking/Tobacco Use Status: Never Second Hand Exposure: Yes Smoking risk assessment performed?: Yes Alcohol Intake: current Alcohol Intake frequency: a few times a month Alcohol type: beer Drug use: Never Substance use type: does not use Caregiver/Support person: No Household members: spouse Housing: house Communication Needs: None Do you need help understanding health information?: Never Pets and animals: Yes Pets and animals: cat(s) and dog(s) Sexually active: Yes Do you think of yourself as: straight/heterosexual Current gender identity: male What is your relationship status?: How often do you talk on the phone with friends or family?: three or more times per week How often do you get together with friends or relatives?: three or more times per week How often do you attend sikh or temple services?: decline to answer Do you belong to any clubs or organized social groups?: no Panel score (0-1 are the most socially isolated patients): 2 Duration: > 90 minutes/day Frequency: daily Rajwinder/Samaritan: No preference Special rajwinder needs: No Seatbelt use: never Helmet use: Yes Helmet use: sometimes Drive 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 garbage collector driver: No Do you feel safe at home: Yes Do you feel safe in your relationship?: Yes Time Spent with Patient Time Spent with Patient: <45 minutes Time was spent: preparing to see the patient(eg.review tests), obtaining and/or reviewing separately otained hiistory, ordering medications,tests, procedures, referring, communicating with other health family day care provider, indepentently interpreting results, counseling the patient and care coordination
--- NOTE | 2023-09-01 16:11 | PDOC.CMDIS ---
Date of service: 09/01/23 Time of Service: 16:12 LACE Index Scoring Tool Questions: Length of Stay (in days): 1 Was the patient admitted via the E.D.?: Yes E.D. Visits: 1 Answers: Total Score: 5 Risk of Readmission: Low Risk Care Management Discharge Plan Reason for Hospitalization: SBO Discharge Plan: Mo is discharged home via private vehicle with family. He will follow up with community providers and his discharge plan of care as instructed. He will follow up with his PCP and Dr. Schroeder as scheduled. Per Dr. Schroeder pt may return to work on Monday, without restrictions. Work note is emailed to patient. No services are ordered on discharge. Patient/Family Education Needs: Review discharge instructions, limitations, medications and plan to follow up with community providers. Discuss ask me three and goals of self care.
== END 2023-09-01 13:48 | disposition home or self-care (01) | DRG 389 ==
LOC: ER 08-30 01:43 → ICU 08-30 02:42 → MS 08-31 16:18
PROVIDERS: Admitting Provider Surgery; Emergency Provider Emergency Medicine; PCP Nurse Practitioner Family; Visit Provider Surgery
DX: K56.609 Unspecified intestinal obstruction, unspecified as to partial versus complete obstruction (principal); Q43.8 Other specified congenital malformations of intestine; N43.3 Hydrocele, unspecified; E78.5 Hyperlipidemia, unspecified; G47.33 Obstructive sleep apnea (adult) (pediatric); I10 Essential (primary) hypertension; R11.2 Nausea with vomiting, unspecified; M54.17 Radiculopathy, lumbosacral region; R05.3 Chronic cough; Z80.42 Family history of malignant neoplasm of prostate; M54.40 Lumbago with sciatica, unspecified side
CPT/HCPCS: 36415; 71045; 80053; 83690; 87635; 96361; 96374; 96375; 99285; J1650; 74177; 81003; 81015; 83605; 83735; 84443; 84484; 85025; G0378; J0131; J0780; J1170; J2270; J2405; J3490

== ENCOUNTER → 2023-09-12 01:06 | Outpatient (CLI) | payer BC, SELFPAY ==
--- NOTE | 2023-09-12 07:15 | DI.MRI_ITS ---
Exam(s) MR LUMBAR SPINE WO EXAM: MR LUMBAR SPINE WO CLINICAL HISTORY: LT LUMBAR RADICULOPATHY,M54.17,EVAL PATHOLOGY. TECHNIQUE: Multiplanar multisequence MRI of the Lumbar spine was performed. COMPARISON: CT CT ABDOMEN PELVIS W from 08/30/2023 FINDINGS: Five lumbar vertebrae are confirmed on recent abdominal CT scan. Conus medullaris is at normal level. There is no evidence of conus mass nor subjacent clumping of in trathecal nerve roots to suggest arachnoiditis. The distal thecal sac appears unremarkable.There is a small Tarlov intra sacral cyst at the upper S3 level. Bones:There are no fractures nor ominous osseous lesions in the lumbar vertebral bodies and visualize d sacrum. With respect to the individual levels... T12-L1: Unremarkable L1-2: Normal disc height and signal. No disc herniation nor central canal stenosis.No foraminal steno sis L2-3: Normal disc height. Posteriorly there is broad prominent annular bulging with a small superimpo sed central subligamentous disc protrusion. Broad annular bulging flattens the anterior thecal sac. This results in Mild-moderate canal stenosis. Annular bulging extends into the floor of the exiting left neural foramen; less so on the right side. However, there is no significant foraminal stenosis on either side. No facet arthropathy. L3-4: Relatively preserved disc height. There is broad annular bulging at this level with a superimp osed small central subligamentous disc protrusion. There is flattening of the anterior thecal sac. There is mild central canal stenosis.There is no prominent annular bulging into the exiting neural fo ramina. There is no evidence of foraminal stenosis. No significant facet arthropathy at this level. L4-5: This level exhibits mild disc space narrowing on the right side. There is broad relatively sym metrical annular bulging which flattens the anterior aspect of the thecal sac. Mild central canal st enosis. Annular bulging does not extend into the exiting left neural foramen. There is no foraminal stenosis on the left side. There is mild foraminal stenosis on the right side due to mild annular b ulging into the exiting right neural foramen and asymmetric disc height loss on the right side. This results in asymmetric mild right-sided foraminal narrowing. Facet joints at this level exhibit mild right-sided degenerative changes. Left facet joint unremarkable. No significant ligamentum flavum hypertrophy nor buckling. L5-S1: This level exhibits mildly decreased disc height. There is some annular bulging, but without central canal stenosis. There is mild bilateral foraminal stenosis related to the bulging annulus an d mild degenerative changes in the facet joints. Soft tissues: paraspinal soft tissues appear unremarkable. IMPRESSION: 1. Multilevel degenerative disc disease findings as described individually above. 2. There is mild-moderate canal stenosis at L2-3 level, mild canal stenosis at L3-4 level and mild ca nal stenosis at L4-5 level. 3. There is mild asymmetric right-sided foraminal stenosis at L4-5 level due to asymmetric narrowing of the right-side of the disc space (see above). There is mild bilateral foraminal stenosis at L5-S1 level. 4. There is only mild facet arthropathy. DATA REPOSITORY:
== END ==
PROVIDERS: PCP Nurse Practitioner Family; Visit Provider Nurse Practitioner Family
DX: M51.16 Intervertebral disc disorders with radiculopathy, lumbar region (principal); M99.63 Osseous and subluxation stenosis of intervertebral foramina of lumbar region
CPT/HCPCS: 72148

== ENCOUNTER 2023-10-24 07:25 | Day surgery (SDC) | payer BC, SELFPAY ==
--- NOTE | 2023-10-23 20:52 | HPE_ITS ---
Date of service: 10/24/23 Time of Service: 08:33 Assessment and Plan Assessment and plan (1) Bilateral inguinal hernia without obstruction or gangrene: Status: Acute Assessment and plan: L>R and possible left hydrocele -possible postOp urinary retention and possible vazquez possible postOP overnight stay \ We will plan on doing bilateral inguinal hernia repair. This does pose a slightly higher concern for postop urinary retention. If he does have a hydrocele we will plan on fixing it at the same time.. Bilateral open hernias with mesh. -If there is a hydrocele present we will also repair that at the same time I discussed the nature of inguinal hernias with the pt and how they form, and consequences of incarceration.? We discussed the warning signs of incarcerations (Severe pain/hardness and inability to reduce the hernia/vomiting/redness and fever) ?and when/how to seek medical attention (our office/PCP or ED).? ?I discussed the surgery in detail and the complications related to the surgery and the anesthesia.? I do recommend that the pt have a nerve block for postop pain control.? We also discussed multi-modality pain management.? Pt. expressed understanding; all questions were answered to the patient satisfaction and they do wish to proceed with surgery.? Patient was given an educational booklet & and a copy of the postop instructions and expressed understanding of how to care for themselves after surgery. Risks of the surgery include but are not limited to: Bleeding/infection/pneumonia/damage to blood vessels or bladder or?bowels/blood clots or PE/chronic pain/urinary retention/chronic numbness/reoccurrence/reaction to mesh requiring removal/damage to testicle or sterility/complications of anesthesia.?We also discussed the possibility of postop urinary retention or bruising. ?The pt will have a pre-Op PE to ensure fitness for anesthesia, and preOp cardiac testing as deemed necessary. ?The procedure will be done with abx and under sterile conditions. This is an outpt day surgery.? ??The pt requires a ride home from surgery and someone to stay with the pt for 24 hrs after anesthesia.? No lifting over 5 pounds for 2-3 weeks after surgery.? Also take Miralax postop to avoid constipation. (2) Sciatica: Status: Acute (3) Diverticula, colon, congenital: Status: Acute (4) Hydrocele, left: Status: Acute (5) Hyperlipidemia: Status: Acute (6) Hypertension: Status: Chronic (7) Severe obstructive sleep apnea: Status: Acute History of Present Illness Narrative: Patient is here today for bilateral inguinal hernia repair left greater than right, and possible left hydrocele repair. They not having any chest pain or shortness of breath, currently.? They are not experiencing any fever or chills.? They deny any productive cough or upper respiratory tract infection signs or symptoms.? They are not having abdominal pain, or nausea and vomiting.? They have not had any changes in medications, past medical history or past surgical history since previously being seen in the office. They have not had any accidents or have been in the ER since the clinic pre-operative evaluation. ??I reviewed the procedure with the patient today, including risks and benefits of the procedure, and what they could expect at home for recovery.? All questions are answered to the patient?s satisfaction today, and they are stable to proceed with the proposed procedure. He had an umbilical hernia in the remote past with mesh. Following that he had to have a laparoscopic lysis of adhesions. Following that procedure apparently he had blood in his urine and had to have a cystoscopy. This was negative per the patient. While he was in the hospital for the SBO he was noted to have bilateral inguinal hernias. Left greater than right. He does have sigmoid colon on the right side. Patient notes on the right side he gets a bulge and pain it comes and goes its worse in the evening he notes that if he lies down he can often work it back into his abdomen. Sometimes he thinks it might interfere with his bowels. -He did have a colonoscopy in 2019 that was significant for hyperplastic polyps and a few small scattered diverticula. -He is also having problems with back pain and recently had an MRI. This shows mild degenerative changes and stenosis. Patient has been referred down to the [facility] at [facility] he notes he has numbness in his left leg. -Patient was told he had a hydrocele on the left testicle in the past. It is listed in his problem list. I did not appreciate 1 by physical exam today. He had an ultrasound in 2013 that did not show a hydrocele. ct: 09/18 BDOMINAL WALL: Fat only containing right paraumbilical hernia. There is also a left inguinal hernia which contains part of the sigmoid. The sigmoid at this level is collapse. This is not the transition point level here. There is also a right inguinal hernia which contains some fluid but no bowel loops within the hernia sac. GI: There are multiple abnormally dilated small bowel loops and stomach is also distended. Consistent with mid small bowel obstruction pattern, similar to 2015. Transition point is in the right-side of the abdomen with collapsed distal I ileal loops. The dilated bowel loops measure up to 3.5 cm. No associated pneumatosis. No free air. No ascites. No abscess. PELVIS: GI: No evidence of appendicitis.Significant part of the colon is collapsed. LYMPH NODES: There is no intrapelvic nor inguinal adenopathy. REPRODUCTIVE: Prostate not enlarged. Seminal vesicles unremarkable. URINARY BLADDER: No calculi nor obvious masses evident OSSEOUS: No fractures and no significant osseous lesions. IMPRESSION: 1. Findings are consistent with mid-distal small bowel obstruction with transition point in the right-side of the abdomen at the mid-distal ileal region. Similar small bowel obstruction was evident in August 2015. Correlation with history of inflammatory bowel disease recommended. 2. Bilateral inguinal hernias are noted. Left inguinal hernia contains part of the collapsed sigmoid. The right inguinal hernia contains some fluid but no bowel loops therein. 3. Surgical consultation recommended Review of Systems All systems reviewed & are unremarkable except as noted in HPI and below PFSH All Active Problems Bilateral inguinal hernia without obstruction or gangrene (Acute) Sciatica (Acute) Left lumbosacral radiculopathy (Acute) Chronic cough (Acute) Diverticula, colon, congenital (Acute) Colon polyp (Acute) Tear of medial meniscus of left knee, current (Acute) Internal derangement of left knee (Acute) Knee pain, left (Chronic) Erectile dysfunction (Acute 07/15/15) Family hx of prostate cancer (Acute 07/04/13) father Hydrocele, left (Acute 07/15/15) Hyperlipidemia (Acute 07/04/13) Hypertension (Chronic) 03/16/17 [facility]: elevated creatinine;elevated lft's; ekg: ? old infarct Severe obstructive sleep apnea (Acute 06/03/17) 06/03/17[facility];VERY SEVERE IN REM SLEEP Medical History Concussion Obstructed umbilical hernia (08/02/12) Surgical History History of colonoscopy (~10/30/20) Repair of inguinal hernia RIGHT Vasectomy Family History Mother Diabetes Essential hypertension Heart disease Hyperlipidemia Father Essential hypertension Heart disease Hyperlipidemia Prostate cancer Sister Essential hypertension Hyperlipidemia Sister No problems noted. Sister No problems noted. Brother Essential hypertension Hyperlipidemia Brother No problems noted. Maternal Grandfather No problems noted. Paternal Grandfather No problems noted. Maternal Grandmother Diabetes Essential hypertension Hyperlipidemia Paternal Grandmother Heart disease Breast cancer Social History Smoking/Tobacco Use Status: Never Second Hand Exposure: Yes Smoking risk assessment performed?: Yes Alcohol Intake: current Alcohol Intake frequency: a few times a month Alcohol type: beer Drug use: Never Substance use type: does not use Caregiver/Support person: No Household members: spouse Housing: house Communication Needs: None Do you need help understanding health information?: Never Pets and animals: Yes Pets and animals: cat(s) and dog(s) Sexually active: Yes Do you think of yourself as: straight/heterosexual Current gender identity: male What is your relationship status?: How often do you talk on the phone with friends or family?: three or more times per week How often do you get together with friends or relatives?: three or more times per week How often do you attend evangelical or quaker services?: decline to answer Do you belong to any clubs or organized social groups?: no Panel score (0-1 are the most socially isolated patients): 2 Duration: > 90 minutes/day Frequency: daily Rajwinder/Episcopal: No preference Special rajwinder needs: No Seatbelt use: never Helmet use: Yes Helmet use: sometimes Drive 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 Do you feel safe at home: Yes Do you feel safe in your relationship?: Yes Meds Allergies and Home Medications Allergies Allergy/AdvReac Type Severity Reaction Status Date / Time No Known Allergies Allergy Verified 10/24/23 07:33 Home Medications Medication Instructions Recorded Confirmed Type Motrin 600 mg PO TID PRN 05/27/13 10/24/23 History fish oil-dha-epa 1,200 mg-144 1 ea PO DAILY 05/27/13 10/24/23 History mg-216 mg capsule C-Pap 07/25/17 09/18/23 History tadalafil 20 mg tablet 20 mg PO DAILY PRN sexual activity 04/06/23 10/24/23 Rx #30 tabs aspirin 81 mg chewable tablet 81 mg PO DAILY #90 tabs 07/17/23 10/24/23 Rx lovastatin 20 mg tablet 20 mg PO HS #90 tab-caps 07/26/23 10/24/23 Rx losartan 50 mg tablet 50 mg PO HS 10/23/23 10/24/23 History omeprazole 20 mg capsule,delayed 20 mg PO HS 10/23/23 10/24/23 History release Exam Narrative Exam Narrative: PHYSICAL EXAM GENERAL APPEARANCE: Alert, healthy appearance, oriented, x 3,? in no acute distress HYDRATION: Well hydrated HEAD, EYES, EARS, NECK, THROAT: Head is normocephalic, pupils equal, round, reactive to light and accommodation, ocular movement intact, sclera clear and no jaundice. ?Dentition intact. LUNGS: normal respiration/normal chest excursion. ?Clear to auscultation bilaterally. ?No wheeze. ?HEART: Regular rate and rhythm. no murmurs ABDOMEN: soft and non-tender to palpation.? Normal bowel sounds.? b/l inguinal hernias Time Spent Time spent with Patient: <40 minutes Time was spent: preparing to see the patient(eg.review tests), obtaining and/or reviewing separately otained hiistory, ordering medications,tests, procedures, referring, communicating with other health client care representative, indepentently interpreting results, counseling the patient and care coordination
--- NOTE | 2023-10-23 20:58 | PDOC.DSDIS_ITS ---
Date of service: 10/24/23 Time of Service: 12:15 Discharge Plan Disposition Patient Disposition: Home Condition: Good Discharge Details Reason For Visit: Hernia repair Attending Provider: Lisa Schroeder Primary Care Provider: Aj Rucker Home Meds and New Rx's Prescriptions: New tramadol 50 mg tablet 50 mg PO Q4H PRNQty: 14 0RF No Action aspirin 81 mg tablet,chewable 81 mg PO DAILY Qty: 90 3RF fish oil-dha-epa 1 EACH capsule 1 ea PO DAILY MOTRIN 600 MG tablet 600 mg PO TID PRN c-pap tadalafil 20 mg tablet 20 mg PO DAILY PRN (Reason: sexual activity) Qty: 30 3RF Rx Instructions: administer approximately 30min before sexual activity; do not use more than 1 dose per 24hrs lovastatin 20 mg tablet 20 mg PO HS Qty: 90 12RF losartan 50 mg tablet 50 mg PO HS omeprazole 20 mg capsule,delayed release(DR/EC) 20 mg PO HS Discharge Instructions Additional Instructions: Dr. Schroeder HERNIA REPAIR ? POSTOPERATIVE INSTRUCTIONS Patients who have this type of surgery can usually be expected to return to work within two weeks and have minimal amounts of discomfort. ? ACTIVITY: The day of surgery should be spent resting. However, you can be up for short periods of time, I.E., going to the bathroom or kitchen. Avoid lifting or straining. On the day following surgery, you can be up and about as desired. ? LIFTING: Restrict your lifting to no more than five (5) pounds for two weeks after surgery. ??We will decide when you are done with restrictions and when you can return to work, at your follow-up appointment.? No sexual activity for two weeks.? ? DIET: There are no dietary restrictions following surgery. However, you may want to start with small amounts of liquids to avoid nausea the day of surgery. ? INCISION CARE: You will notice purple skin glue closing the incision.? Do not peel this off- it will wear off on its own.? After 24 hours you may shower. The dressing may be replaced for comfort, but is not necessary. ?An ice bag may be applied to the incision for 72 hours following surgery. ? SIGNS OF INFECTION: It is not unusual to have some black and blue discoloration of the skin around the incision, but also scrotum and penis.? ?It will slowly disappear. If you have any increased redness, drainage, fever (above 100 degrees), please contact your doctor for an examination. ? DISCOMFORT: You may expect to have some mild discomfort at the incision sight. If severe pain develops you should contact your doctor for further instructions. ? URINATION: Patients who have surgery occasionally have problems urinating. If you experience problems and are not able to urinate within 6 hours following your surgery, please call your doctor immediately or go to your nearest Emergency Room for evaluation. ? DRIVING: NO driving for three (3) days after surgery, or if you are still taking narcotic pain medication.? ? MEDICATIONS: Alternate Tylenol 1000mg by mouth every 8 hours and Ibuprofen 600mg every 6 hours. ?Make sure you take ibuprofen with food and not on an empty stomach. ?Take the Tylenol and ibuprofen continuously for the first 72hrs- not just when you have pain.? Use the tramadol for breakthrough pain/pain >7.? Use ICE!?? Twenty minutes on, and then off, continuously for the first 72hours. If you are taking narcotic pain medication, follow the instructions on the label and do not drive. Pain medications can make you very constipated. Make sure you are moving your bowels daily. If not, take Miralax or Milk of Magnesia.?? Anesthesia makes you very constipated.? Take a dose of milk of magnesia the morning after surgery. ? REPORT: Unusual swelling, severe pain, unresolved nausea, signs of infection, or difficulty in urination to your surgeon. Follow up in clinic with Dr. Schroeder in 2 weeks.? [phone] Activity:: See above Remove Dressings/Wound Care:: 24 hours Shower/Bathe:: 24 hours Diet:: As Tolerated Discharge Orders Discharge Orders: Discharge Order (Routine); Ordered 10/23/23 Ordered By: Lisa Schroeder DS: Diagnosis Discharge Diagnosis (1) Bilateral inguinal hernia without obstruction or gangrene: Status: Acute Asessment and Plan: The patient is doing well post-op from their [] surgery.? They are having no na usea or vomiting. They are tolerating liquids and a snack. The pt is not having any chest pain or SOB.? Their pain is adequately controlled. They have been able to urinate.? ?HEENT:? no eye pain/drainage/redness/swelling. Mild sore throat ?Cardio- NSR, no chest pain, BP stable- see VS record ?Pulm: no sob or productive cough. No hemoptysis ?Incision- dressing is c/d/i w/ no excessive bleeding or drainage ?I discussed with the patient the findings at the time of surgery and the patient?s progress. ?We reviewed expectations at home; what the patient could expect for recovery time, and in the post-operative period.? We discussed the importance of walking to avoid blood clots and pneumonia.? We discussed and reviewed the patient's post-operative wound care and dressing needs.?? We reviewed their step-pardo pain management plan, Rx called to the pharmacy of their choice.? We reviewed activity and limitations-see discharge instructions. We reviewed warning signs, and when to seek medical attention- see d/c instructions.?? Patient was given a postoperative follow-up appointment. (2) Sciatica: Status: Acute (3) Diverticula, colon, congenital: Status: Acute (4) Hydrocele, left: Status: Acute (5) Hyperlipidemia: Status: Acute (6) Hypertension: Status: Chronic (7) Severe obstructive sleep apnea: Status: Acute
--- NOTE | 2023-10-23 21:02 | ROE_ITS ---
Date of service: 10/24/23 Time of Service: 12:12 Operative Note Operative Note DATE OF PROCEDURE: 10/24/23 PRE-OP DIAGNOSIS: Bilateral inguinal hernia/possible left hydrocele POST-OP DIAGNOSIS: other (b/l indirect inguinal hernia / no hydrocele ) PROCEDURE: Open bilateral inguinal hernia with mesh SURGEON: Stoney Little SERVICE ELECTRICIAN: Cary Farr ANESTHESIA TYPE: Local By Surgeon, General LMA/ETT and Primary Nerve Block Refer to Anesthesia Record ESTIMATED BLOOD LOSS: 10 PATHOLOGY: other COMPLICATIONS: None Patient was transported to: same day Patient's condition: stable Implants: see RN note Procedure Description: INDICATIONS: The pt is here today for surgery regarding symptomatic b/l inguinal hernia that has failed outpatient conservative medical management and he is here today for repair. Informed consent was obtained, explaining risks and benefits of the procedure including but not limited to bleeding, infection, pneumonia, blood clots, chronic pain, chronic numbness, damage to testicle resulting in removal, recurrence of hernia, reaction to Mesh necessitating removal, and other unforetold complications, and complications of anesthesia- which were addressed by the INSPECTOR [employer] FRAMES. The patient is marked in preOp prior to the procedure DESCRIPTION OF PROCEDURE:? The pt is then brought to the operative room suite. Anesthesia was administered per the Department of Anesthesia. ?A nerve block was performed by anesthesia under US guidance. The patient was prepped and draped in the usual sterile fashion using ChloraPrep scrub solution. Pause for the cause was done. He did receive preop IV antibiotics, and 30 mL of .25% Marcaine w/ epinephrine was used for local anesthetization. Left side is attended to first. A #12 blade was used to make an incision over the external ring. Electrocautery used to provide hemostasis and dissect down to the fascia. There is a significant amounts of scarring present. There is also a significant amount of adenopathy. 3 lymph nodes are sampled and sent to pathology for evaluation. Titanium clips are used to provide hemostasis the fascia was pretty much obliterated and there was nothing to open. The cord is elevated. The nerve was not identified. There is a cord large cord lipomas.? Electro-cautery is used to provide hemostasis. A Friendly drain was placed around the cord to assist in mobilization. The cord was explored. ?There was is large hernia sac on the cord. There is no direct hernia pushing through the floor. The hernia sac is dissected off the cord using a combination of blunt dissection and electrocautery.? Electrocautery is used to provide hemostasis.?? The sac is open. It does contain sigmoid colon that is adhesed to the sac. The colon dissected from the sac and returned to the abdominal cavity. The sac is ligated using cautery. a extra-large size plug is than inserted into the defect through the internal ring, and over sewn to tighten up the ring with 2-0 vicryl.? Please see RN notes from Lot number of the Bard mesh patch/plug.? The cord structures are still able to freely move through the ring itself.? Patient was noted to have a hydrocele on ultrasound. The testicle was delivered into the field. The testicle is palpable and there does not appear to be a significant hydrocele. A a small quang is made in the tunica; No hydrocele is appreciated. The incision is closed with 2 stitches of 4-0 chromic. The testicle was returned to the scrotum. The patch was then placed onto the floor, and using 2-0 Vicryl, sewn into the pubic tubercle and the shelving portions of the inguinal ligament, in the standard Lichenstein fashion.? ?The tails of the mesh are brought around the cord, sewn together w/ 2-0 Vicryl, and tucked under the external oblique.? The wound was copiously irrigated. There was no bleeding noted. The drain was removed. All structures are returned to normal anatomical position. The nerve is not sewn into the mesh, nor caught up in any sutures. The external oblique is re- approximated using 2-0 vicryl in a running fashion. ?Deep tissue was approximated with 3-0 Vicryl in a running fashion, and skin was approximated with 4-0 Monocryl in a running subcuticular fashion. The right side is attended to next. A #12 blade was used to make an incision over the external ring. Electrocautery used to provide hemostasis and dissect down to the fascia. The fascia was pretty much obliterated and there was nothing to open. The cord is elevated. The nerve was not identified. Again there is dense scarring and adenopathy present.. There is a medium- sized is a cord lipomas.? Electro-cautery is used to provide hemostasis. A Diya drain was placed around the cord to assist in mobilization. The cord was explored. ?There was is medium- sized hernia sac on the cord. There is no direct hernia pushing through the floor. The hernia sac is dissected off the cord using a combination of blunt dissection and electrocautery.? Electrocautery is used to provide hemostasis.?? There are no contents within the hernia sac.? The hernia sac is excised. ? A large size plug is than inserted into the defect through the internal ring, and over sewn to tighten up the ring with 2-0 vicryl.? Please see RN notes from Lot number of the Bard mesh patch/plug.? The cord structures are still able to freely move through the ring itself.? The patch was then placed onto the floor, and using 2-0 Vicryl, sewn into the pubic tubercle and the shelving portions of the inguinal ligament, in the standard Lichenstein fashion.? ?The tails of the mesh are brought around the cord, sewn together w/ 2-0 Vicryl, and tucked under the exter nal oblique.? The wound was copiously irrigated. There was no bleeding noted. The drain was removed. All structures are returned to normal anatomical position. The nerve is not sewn into the mesh, nor caught up in any sutures. The external oblique is re-approximated using 2-0 vicryl in a running fashion. ?Deep tissue was approximated with 3-0 Vicryl in a running fashion, and skin was approximated with 4-0 Monocryl in a running subcuticular fashion. Skin glue and sterile dressings are applied to both incisions.. The patient tolerated the procedure without complications to recovery in stable condition. STONEY LITTLE, DO
[2023-10-24] VITALS (9 sets, daily range): BP systolic 91–149; BP diastolic 42–93; PULSE 64–69; RESP 14–19; TEMP 36.4–36.9; O2SAT 92–98; BMI 31.3
--- NOTE | 2023-10-24 06:19 | W.ANESPRE ---
General Info Date of Service Date Performed: 10/24/23 Height: 5 ft 2 in Weight: 77.621 kg Body Mass Index (BMI): 31.3 Surgical Procedure: Operation Date: 10/24/23 08:10 Proposed Procedure Side Surgeon p Herniorrhaphy Inguinal w/Mesh Bilateral Lisa Schroeder DO s Hydrocelectomy Left Lisa Schroeder DO Meds Allergies and Home Medications Allergies Allergy/AdvReac Type Severity Reaction Status Date / Time No Known Allergies Allergy Verified 10/24/23 07:33 Home Medication Medication Instructions Recorded Motrin 600 mg PO TID PRN 05/27/13 fish oil-dha-epa 1,200 mg-144 1 ea PO DAILY 05/27/13 mg-216 mg capsule C-Pap 07/25/17 tadalafil 20 mg tablet 20 mg PO DAILY PRN sexual activity 04/06/23 #30 tabs aspirin 81 mg chewable tablet 81 mg PO DAILY #90 tabs 07/17/23 lovastatin 20 mg tablet 20 mg PO HS #90 tab-caps 07/26/23 losartan 50 mg tablet 50 mg PO HS 10/23/23 omeprazole 20 mg capsule,delayed 20 mg PO HS 10/23/23 release Current Visit Medications: Current Medications Generic Name Dose Route Start Last Admin Trade Name Freq PRN Reason Stop Dose Admin Acetaminophen 1,000 mg 10/24/23 06:00 Acetaminophen 500 Mg Tab PO 10/24/23 23:59 PREOP JASMYNE Gabapentin 600 mg 10/24/23 06:00 Gabapentin 300 Mg Cap PO 10/24/23 23:59 PREOP JASMYNE Ringer's Solution 1,000 mls @ 80 mls/hr 10/24/23 06:00 IV 10/24/23 23:59 INFUSION JASMYNE Cefazolin Sodium/Dextrose 2 gm in 50 mls @ 100 mls/hr 10/24/23 06:00 Ancef Duplex IVPB 10/24/23 23:59 PREOP JASMYNE Ondansetron HCl 4 mg/ Sodium 52 mls @ 200 mls/hr 10/23/23 20:57 Chloride IVPB 11/22/23 20:56 Q6H PRN PRN IV Miscellaneous Supplies 1 each 10/24/23 06:00 Iv Access IV 10/24/23 23:59 DIRECTED JASMYNE Morphine Sulfate 2 mg 10/23/23 20:57 Morphine 4 Mg/Ml Syr IVP 11/22/23 20:56 Q1H PRN PRN Sodium Chloride 0 ml 10/24/23 06:00 Normal Saline Flush 10 Ml Syr IV 10/24/23 23:59 PRN PRN Sodium Chloride 0 ml 10/24/23 06:00 Normal Saline 10 Ml Vial IJ 10/24/23 23:59 DIRECTED PRN Sterile Water 0 ml 10/24/23 06:00 Water,Injection,Sterile 10 Ml Vial IJ 10/24/23 23:59 DIRECTED PRN PFSH Active Problems Active Problems: Problem Status Onset Code Bilateral inguinal hernia without obstruction or gangrene K40.20 Sciatica M54.30 Left lumbosacral radiculopathy M54.17 Chronic cough R05.3 Diverticula, colon, congenital Q43.8 Colon polyp K63.5 Tear of medial meniscus of left knee, current S83.242A Internal derangement of left knee M23.92 Knee pain, left M25.562 Erectile dysfunction 07/15/15 N52.9 Family hx of prostate cancer 07/04/13 Z80.42 Hydrocele, left 07/15/15 N43.3 Hyperlipidemia 07/04/13 E78.5 Hypertension I10 Severe obstructive sleep apnea 06/03/17 G47.33 Medical History Medical History Concussion Obstructed umbilical hernia (08/02/12) Medical History Comments:: Severe JULIETTE Surgical History Surgical History History of colonoscopy (~10/30/20) Repair of inguinal hernia RIGHT Vasectomy Tobacco Smoking/Tobacco Use Status: Never Passive smoking exposure: No Second hand exposure: Yes Alcohol Alcohol Intake: current Alcohol intake frequency: a few times a month Alcohol type: beer Substance Use Substance use: Never Substance use type: does not use Vital Signs and Lab Results Vital Signs Most Recent Vital Signs in EMR: Temp Pulse Resp BP Pulse Ox 36.9 C 64 16 149/93 H 96 10/24/23 07:35 10/24/23 07:35 10/24/23 07:35 10/24/23 07:35 10/24/23 07:35 Lab Results Blood Type / Crossmatch: No Data to Display Complete Blood Count: No Data to Display Complete Metabolic Panel: No Data to Display Liver Function Panel: No Data to Display Coagulation Panel: No Data to Display Cardiac Panel: No Data to Display Arterial Blood Gas: No Data to Display Venous Blood Gas: No Data to Display Pancreas Panel: No Data to Display Thyroid Panel: No Data to Display Infectious Disease: No Data to Display Blood Cultures: No Data to Display Toxicology Panel: No Data to Display Imaging and Studies Imaging and Studies Study information below may be from another EMR and interpreted by another provider. Please see original notes in EMR for more complete details. Stress Test Summary: 04/12: normal study after pharm stress. no defects noted, EF 55%. Echocardiogram Summary: 06/13: LVEF 60-65%, moderate asymmetric hypertrophy of the septum, no dynamic obstruction, mild Anesthesia Assessment and Plan Anesthesia History Personal History: No History of Anesthesia Complications Family History: No Family History of Anesthesia Complications Exercise Tolerance Exercise Tolerance: Metabolic Equivalents>4 Cardiac & Pulmonary Exam Cardiac Exam: Normal S1/S2 Heart Sounds Pulmonary Exam: Clear Bilateral Breath Sounds Implantable Cardiac Device Does patient have a Pacemaker or an ICD?: No Airway Exam Known Difficult Airway: No Mallampati Class: 4 Mouth Opening: Normal (> 3cm) Thyromental Distance: Less than 3 cm Neck Range of Motion: Limited ROM Neck Circumference: Thick Teeth Condition: Normal Dentition and Removable Dentures/Plates Upper ASA Classification ASA Score: ASA 2 Emergency Case?: No NPO Status NPO Status: NPO Clears >2 hours, Solids >8 hours Anesthesia Plan Resuscitation Status: Full Code Anesthesia Technique: General Anesthesia Airway Planned: LMA Pain Management: Surgeon and patient request nerve block Monitors Used: Standard Monitors Preoperative Comments:: 58 yo male for bilateral inguinal hernia repair. sig PMHx: HTN (losartan), severe JULIETTE (uses CPAP), GERD (well controlled with omeprazole) never smoker, occ EtOH. Previous Anes: - colo, prop, natural airway, no issues.
[2023-10-24] MEDS: Gabapentin 300 MG CAP 600 MG PO (07:55)
[2023-10-24] MEDS: Acetaminophen 500 MG TAB 1000 MG PO (07:55)
[2023-10-24] MEDS: Lactated Ringers 1,000 ML 80 ML IV (07:56)
[2023-10-24] MEDS: ceFAZolin 2 GM/50 ML BAG IVPB (08:49)
--- NOTE | 2023-10-24 09:16 | W.ANESNERVE ---
Nerve Block Single Injection Procedure Date and Time Date Performed: 10/24/23 Procedure Start: 08:59 Location Where Procedure Performed Procedure Location: Operating Room Procedure Stop: 09:07 Reason Performed: Postoperative Analgesia Requesting Provider: Lisa Schroeder Timeout Performed Timeout Performed: Yes Monitoring Used ECG, Blood Pressure, SpO2 and ETCO2 Sterility Sterility: Hand Hygiene, Surgical Cap, Surgical Mask, Sterile Gloves and Chlorhexidine Sedation Given During Procedure Sedation Given (Indicate Dose Given): No Sedation given Patient Mental Status Patient Mental Status: Performed under general anesthesia Nerve Block 1st Nerve Block: Laterality: Bilateral Block Type: TAP Bilateral Ultrasound Image Saved?: Yes Needle / Catheter Used: 100mm SonoPlex II Local Anesthetic Bolus (Indicate Dose Given): Bupivacaine 0.25% Dose:: 22 mL Additives (Indicate Dose Given): Epinephrine to make 1:400,000 (2.5mcg/ml) Dose:: 55 mcg and Precedex Dose:: 40 mcg Ultrasound: Sterile probe cover and gel used Nerve Stimulator: Not Used Paresthesia: None Procedure Tolerated: No Complications Procedure Outcome: Successful Performed By: Charles Jenkins
[2023-10-24] MEDS: Bupivacaine 0.25% Pres-Free 30 ML VIAL (09:19)
[2023-10-24] MEDS: EPINEPHrine 10 MG/10 ML ML (09:19)
--- NOTE | 2023-10-24 09:24 | LYM_PTH ---
PATIENT: Terry Ayoub LOC: [place] U#:[id number] AGE/SX: 58/M ROOM: RE10/24/[address]: Lisa Schroeder : 1965 BED: DIS: 10/24/2023 SPEC #: [id number] RECD: 10/24/23 12:31 STATUS: IVÁN RENathaniel #: [id number] JANIS: 10/24/23 09:[address]: Lisa Schroeder DEPT: Surgical Specimen RECD BY: Naz Nunez ENTERED: 10/24/23 12:32 SP TYPE: LYM OTHR DR: Aj Rucker, YANG Tissues: 1 - LYMPH NODE BIOPSY Procedures: GROSS AND MICRO LEVEL 4 IMMUNOPEROXIDASE STAIN Single Probe In Situ Hybridization Comments: [id number]
--- NOTE | 2023-10-24 13:33 | W.ANESPOSTOP ---
Postoperative Evaluation Date, Time and Location Date Performed: 10/24/23 Time Performed: 13:33 Patient Location: Day Surgery Unit Vital Signs Most Recent Imported Vital Signs: Most Recent Vital Signs Temp Pulse Resp BP Pulse Ox 36.6 C 65 16 106/69 95 10/24/23 13:28 10/24/23 13:28 10/24/23 13:28 10/24/23 13:28 10/24/23 13:28 Pain Score Most Recent Pain Score: Most Recent Pain Score Pain Level 0 10/24/23 13:28 Assessment Mental Status: Arousable with meaningful communication Airway and Respiratory Function: Patent airway with normal (patient baseline) respiratory exam Cardiovascular Function: Hemodynamically Stable Hydration Status: Adequately Hydrated Nausea & Vomiting: No Nausea or Vomiting Pain: Pt. Denies Any Pain Peripheral Nerve Block: Regional nerve block not resolved at time of post operative discharge
== END 2023-10-24 14:07 | disposition home or self-care (01) ==
LOC: SUR 07:25
PROVIDERS: PCP Nurse Practitioner Family; Visit Provider Surgery
PROC: (CPT 49505; principal; 2023-10-24 08:00)
PROC: (CPT 49505; 2023-10-24 08:00)
DX: K40.20 Bilateral inguinal hernia, without obstruction or gangrene, not specified as recurrent (principal); I10 Essential (primary) hypertension; E78.5 Hyperlipidemia, unspecified; G47.33 Obstructive sleep apnea (adult) (pediatric); R59.9 Enlarged lymph nodes, unspecified
CPT/HCPCS: 49505; 76942; 88305; 88368; 88361; C1781; J0171; J0690; J1100; J1885; J2250; J2405; J2704; J3475

== ENCOUNTER 2024-04-01 20:03 | Observation (INO) | payer BC, SELFPAY ==
[2024-04-01] VITALS (109 sets, daily range): BP systolic 169; BP diastolic 104; PULSE 79; RESP 14–25; TEMP 37.1; O2SAT 98
--- NOTE | 2024-04-01 20:15 | DI.CT_ITS ---
Exam(s) CT ABDOMEN PELVIS W EXAM: CT ABDOMEN PELVIS W CLINICAL HISTORY: abd pain and vomiting TECHNIQUE: Imaging Protocol: Axial computed tomography images with coronal and sagittal reformatted images were created and reviewed. CONTRAST MATERIAL: Intravenous: Omnipaque 350 Contrast volume:100 mL Oral: No COMPARISON: CT ABD PELVIS WITH CONTRAST from 08/29/[address] ABDOMEN PELVIS W from 08/30/2023 FINDINGS: ABDOMEN: Lung Bases: Coronary artery calcifications are present. Liver: There is diffuse decreased attenuation of the liver consistent with fatty infiltration. The l iver is enlarged. No measurable mass. Portal, Superior Mesenteric, and Splenic Veins: Unremarkable. Gallbladder and Biliary Tract: No radiodense calculus or dilation. Pancreas: Normal density, no abnormal calcifications or inflammatory process. Spleen: Normal. Adrenals: No masses seen. Kidneys: Normal size, contour and axis. There is a 7 mm stone in the distal right ureter just proxima l to the UVJ. There is minimal hydronephrosis. No masses seen. Abdominal Aorta: Abdominal portion non-dilated. Atherosclerotic calcification is present. Bowel: There are few diverticula seen in the colon, but no evidence of acute diverticulitis. There i s no evidence of appendicitis. There are dilated loops of small bowel present with normal caliber di stal small bowel. The transition appears to lie in the right lower quadrant. No pneumatosis is seen . Peritoneal Cavity: No ascites, collection or mesenteric inflammatory response. No free air. Lymph Nodes: Within normal limits. Bones: Within normal limits for the patient's age. Soft Tissues: There are findings suggestive of a prior bilateral inguinal hernia repair. There are s urgical clips seen in the scrotum suggesting prior vasectomy. There is infiltration in the soft tiss ues in the inguinal regions bilaterally. No focal fluid collection is seen to suggest an abscess. PELVIS: Bladder: Symmetric distention, no gross wall thickening. Reproductive Organs: Unremarkable as visualized. Lymph Nodes: Within normal limits. Bones: Within normal limits for the patient's age. IMPRESSION: 1. Findings suspicious for small bowel obstruction with a transition in the right lower quadrant. 2. 7 mm dist right ureteral stone just proximal to the UVJ with minimal hydronephrosis. 3. Hepatomegaly and fatty infiltration of the liver. 4. Soft tissue stranding in the inguinal regions bilaterally but no focal fluid collection is seen to suggest an abscess. Please correlate with physical exam. RADIATION DOSE DELIVERED: 944.71mGy.cm Total DLP DATA REPOSITORY: All CT scans at this facility are submitted to the National Radiology Data Registry (NRDR) Dose Index Registry (DIR) with the [employer] (ACR). RADIATION OPTIMIZATION: All CT scans at this facility use at least one of these dose optimization te chniques: automated exposure control; mA and/or kV adjustment per patient size (includes targeted exa ms where dose is matched to clinical indication); or iterative reconstruction.
[2024-04-01] MEDS: Normal Saline 1,000 ML 1000 ML IV (20:43)
[2024-04-01] MEDS: Ondansetron 4 MG/2 ML VIAL IVP (20:44)
[2024-04-01] MEDS: FAMOTIDINE 20 MG in Normal Saline 100 ML 400 MG IVPB (20:45)
--- NOTE | 2024-04-01 20:45 | RT.EKG_ITS ---
APPROVED REPORT Exam: Resting ECG Reason for Exam: abd pain Patient Location: E HR:69 bpm ECG Measurements Heart Rate 69 AXIS MO 164 P 53 QRSd 103 QRS 74 QT 373 T 45 QTc 400 Conclusion Sinus rhythm. 69 normal axis no stemi
[2024-04-01 20:49] LABS: Abs Immature Grans 0.05 10^3/uL (0.0-0.06); Absolute Basophil Count 0.04 10^3/uL (0.0-0.2); Absolute Lymphocyte Count 1.06 10^3/uL (1.2-3.4); Absolute Monocyte Count 0.54 10^3/uL (0.1-0.8); Absolute Neutrophil Count 10.01 10^3/uL (1.2-6.7); Basophils % 0.3 %; HCT 49.9 % (40.0-50.0); Immature Grans % 0.4 %; Lymphocytes % 9.1 %; MCH 29.3 pg (27.0-33.0); MCHC 34.1 % (32.0-36.0); MCV 86 fL (80-95); MPV 11.2 fL (8.0-11.0); Monocytes % 4.6 %; Neutrophils % 85.6 %; Platelet Count 167 10^3/uL (130-400); RDW 12.4 % (11.8-14.1); RDW-SD 38.8 fL; WBC 11.69 10^3/uL (4.4-10.8)
[2024-04-01 21:02] LABS: ALT 47 U/L (16-63); AST 19 U/L (15-37); Albumin 4.5 g/dL (3.4-5.0); Alkaline Phosphatase 87 U/L (46-116); Anion Gap 12.8 mmol/L (3-11); BUN 22 mg/dL (7-18); Bilirubin, Total 0.8 mg/dL (0.2-1.0); CO2 26.2 mmol/L (21.0-32.0); CREATININE 1.3 mg/dL (0.70-1.30); Calcium 9.8 mg/dL (8.5-10.1); Chloride 103 mmol/L (98-107); Estimated GFR 63.28 (mL/min/1.73m2); Glucose 125 mg/dL (74-106); Lipase 41 U/L (16-77); Magnesium 1.7 mg/dL (1.8-2.4); Potassium 4.8 mmol/L (3.5-5.1); Sodium 142 mmol/L (136-145); Total Protein 8.3 g/dL (6.4-8.2)
[2024-04-01] MEDS: Normal Saline - Diluent 50 ML VIAL IJ (21:13)
[2024-04-01] MEDS: Omnipaque 350 MG/ML 100 ML BTL IJ (21:14)
[2024-04-01 21:23] LABS: Troponin I < 50 ng/L (< or =60)
[2024-04-01] MEDS: MORPHine 10 MG/ML VIAL 6 MG IVP (21:43)
--- NOTE | 2024-04-01 22:27 | W.ED.GENAD ---
Discharge Plan Disposition Patient Disposition: Admit to [facility] Condition: Stable Discharge Details Clinical Impression: SBO (small bowel obstruction) Primary Care Provider: Aj Rucker ED Provider: Harshil Fulton Home Meds and New Rx's Prescriptions: No Action ondansetron HCl 4 mg tablet 4 mg PO Q8H PRN (Reason: nausea and vomiting) Qty: 10 0RF aspirin 81 mg tablet,chewable 81 mg PO DAILY Qty: 90 3RF fish oil-dha-epa 1 EACH capsule 1 ea PO DAILY MOTRIN 600 MG tablet 600 mg PO TID PRN (DME) c-pap 0 .ROUTE .MEDSUPPLY tadalafil 20 mg tablet 20 mg PO DAILY PRN (Reason: sexual activity) Qty: 30 3RF Rx Instructions: administer approximately 30min before sexual activity; do not use more than 1 dose per 24hrs lovastatin 20 mg tablet 20 mg PO HS Qty: 90 12RF losartan 50 mg tablet 50 mg PO HS omeprazole 20 mg capsule,delayed release(DR/EC) 20 mg PO HS HPI General Date/Time Provider Initiated Documentation: 04/01/24 20:05. Limitations to Documentation: physical limitation. Information obtained by: patient. HPI Narrative: 58y M with PMH of bilateral inguinal hernia status postrepair, hypertension presents for evaluation of generalized abdominal pain. Symptoms have been present all day. Symptoms associated with nausea and vomiting. Has also had some episodes of diarrhea. Nonbloody. Denies any fever. Was seen in urgent care earlier and got a dose of Zofran, but reports that he is still been vomiting since that time. Reports generalized pain and fullness. He states that since his hernia repair he has been feeling great and not having any pain Related Data Home Medications Medication Instructions Recorded Confirmed Motrin 600 mg PO TID PRN 05/27/13 04/01/24 fish oil-dha-epa 1,200 mg-144 1 ea PO DAILY 05/27/13 04/01/24 mg-216 mg capsule C-Pap 07/25/17 04/01/24 tadalafil 20 mg tablet 20 mg PO DAILY PRN sexual activity 04/06/23 04/01/24 #30 tabs aspirin 81 mg chewable tablet 81 mg PO DAILY #90 tabs 07/17/23 04/01/24 lovastatin 20 mg tablet 20 mg PO HS #90 tab-caps 07/26/23 04/01/24 losartan 50 mg tablet 50 mg PO HS 10/23/23 04/01/24 omeprazole 20 mg capsule,delayed 20 mg PO HS 10/23/23 04/01/24 release ondansetron HCl 4 mg tablet 4 mg PO Q8H PRN nausea and 04/01/24 04/01/24 vomiting #10 tabs Previous Rx's Medication Instructions Recorded tadalafil 20 mg tablet 20 mg PO DAILY PRN sexual activity 04/06/23 #30 tabs aspirin 81 mg chewable tablet 81 mg PO DAILY #90 tabs 07/17/23 lovastatin 20 mg tablet 20 mg PO HS #90 tab-caps 07/26/23 ondansetron HCl 4 mg tablet 4 mg PO Q8H PRN nausea and 04/01/24 vomiting #10 tabs Allergies Allergy/AdvReac Type Severity Reaction Status Date / Time No Known Allergies Allergy Verified 04/01/24 20:10 General Stated Complaint: Abd Prob DANY: 3 Exam Narrative Exam Narrative: Review of Systems: All systems reviewed & are unremarkable except as noted in HPI and below Well-developed, + acute distress NCAT PERRL, normal conjunctiva RRR, no murmur Unlabored respiratory effort, clear bilaterally Slightly distended abdomen , generalized tenderness, no guarding or rebound Extremities w/o deformity, no cyanosis, no edema No rashes or lesions. no focal neurologic deficits Appropriate mood and affect Course Vital Signs Vital signs: Vital Signs Temperature 37.1 C 04/01/24 20:06 Pulse 79 04/01/24 20:06 Respiratory Rate 22 04/01/24 20:06 Blood Pressure 169/104 H 04/01/24 20:06 Pulse Oximetry 98 04/01/24 20:06 Temperature 37.1 C 04/01/24 20:06 Temperature Source Temporal Artery Scan 04/01/24 20:06 Pulse 79 04/01/24 20:06 Respiratory Rate 22 04/01/24 20:06 Respiratory Effort Normal, Non-Labored 04/01/24 20:11 Blood Pressure 169/104 H 04/01/24 20:06 Blood Pressure Position Sitting 04/01/24 20:06 Pulse Oximetry 98 04/01/24 20:06 Oxygen Delivery Method Room Air 04/01/24 20:06 Oxygen Flow Rate 0 04/01/24 20:06 Pain Level 5 05/06/24 20:06 Lab/Test Results Lab/Test Results: Laboratory Tests Range/Units 04/01/24 20:38 WBC (4.4-10.8) 10^3/uL 11.69 H RBC (4.36-5.78) 10^6/uL 5.80 H Hgb (13.5-17.5) g/dL 17.0 Hct (40.0-50.0) % 49.9 MCV (80-95) fL 86 MCH (27.0-33.0) pg 29.3 MCHC (32.0-36.0) % 34.1 RDW (11.8-14.1) % 12.4 Plt Count (130-400) 10^3/uL 167 MPV (8.0-11.0) fL 11.2 H Immature Gran % % 0.4 Neutrophils % % 85.6 Lymphocytes % % 9.1 Monocytes % % 4.6 Eosinophils % % 0.0 Basophils % % 0.3 Nucleated RBC % (0.0-0.3) % 0.0 Absolute Neutrophils (1.2-6.7) 10^3/uL 10.01 H Absolute Lymphocytes (1.2-3.4) 10^3/uL 1.06 L Absolute Monocytes (0.1-0.8) 10^3/uL 0.54 Absolute Eosinophils (0.0-0.7) 10^3/uL 0.00 Absolute Basophils (0.0-0.2) 10^3/uL 0.04 Sodium (136-145) mmol/L 142 Potassium (3.5-5.1) mmol/L 4.8 Chloride (98-107) mmol/L 103 Carbon Dioxide (21.0-32.0) mmol/L 26.2 Anion Gap (3-11) mmol/L 12.8 H BUN (7-18) mg/dL 22 H Creatinine (0.70-1.30) mg/dL 1.3 Est GFR (CKD-EPI 2020) (mL/min/1.73m2) 63.28 Glucose (74-106) mg/dL 125 H Calcium (8.5-10.1) mg/dL 9.8 Magnesium (1.8-2.4) mg/dL 1.7 L Total Bilirubin (0.2-1.0) mg/dL 0.8 AST (15-37) U/L 19 ALT (16-63) U/L 47 Alkaline Phosphatase (46-116) U/L 87 Troponin I (< or =60) ng/L < 50 Total Protein (6.4-8.2) g/dL 8.3 H Albumin (3.4-5.0) g/dL 4.5 Lipase (16-77) U/L 41 Medical Decision Making Emergent evaluation of abdominal pain. Initial differential includes gastroenteritis, dehydration, electrolyte derangement, bowel obstruction. Patient has had SBO in the past and has had recent hernia repair about 6 months ago. He is not having any concerns for acute GI bleeding. He has been having several episodes of vomiting and diarrhea. Lab work obtained, he has a slight leukocytosis. BUN slightly elevated and creatinine is at upper limit of normal which appears to be the baseline for the patient. His lipase is not elevated. He has been given IV fluids, antiemetics and pain control. 2250 CT scan reviewed with radiologist, there is concern for small bowel obstruction with transition point in the right lower quadrant. Discussed with Dr. Vela, general surgery, and the patient will be admitted to their service for further management. Medical Records Medical records reviewed: Yes I reviewed the patient's medical records. Lab Data Lab results reviewed: Yes I reviewed the patient's lab results. Quality:[facility] Health Related Social Needs: No Data to Display FOR[facility]LY [facility] All Active Problems (Updated 04/01/24 @ 22:49 by Harshil Fulton MD) SBO (small bowel obstruction) (Acute) Bilateral inguinal hernia without obstruction or gangrene (Acute) Sciatica (Acute) Left lumbosacral radiculopathy (Acute) Chronic cough (Acute) Diverticula, colon, congenital (Acute) Colon polyp (Acute) Tear of medial meniscus of left knee, current (Acute) Internal derangement of left knee (Acute) Knee pain, left (Chronic) Erectile dysfunction (Acute 07/15/15) Family hx of prostate cancer (Acute 07/04/13) father Hyperlipidemia (Acute 07/04/13) Hypertension (Chronic) 03/16/17 [facility]: elevated creatinine;elevated lft's; ekg: ? old infarct Severe obstructive sleep apnea (Acute 06/03/17) 06/03/17-[facility];VERY SEVERE IN REM SLEEP Medical History Concussion Obstructed umbilical hernia (08/02/12) Surgical History Inguinal hernia of right side with obstruction (~09/2023) History of colonoscopy (~10/30/20) Vasectomy Repair of inguinal hernia RIGHT Family History Mother Diabetes Essential hypertension Heart disease Hyperlipidemia Father Essential hypertension Heart disease Hyperlipidemia Prostate cancer Sister Essential hypertension Hyperlipidemia Sister No problems noted. Sister No problems noted. Brother Essential hypertension Hyperlipidemia Brother No problems noted. Maternal Grandfather No problems noted. Paternal Grandfather No problems noted. Maternal Grandmother Diabetes Essential hypertension Hyperlipidemia Paternal Grandmother Heart disease Breast cancer Social History Smoking/Tobacco Use Status: Never Second Hand Exposure: Yes Smoking risk assessment performed?: Yes Alcohol Intake: current Alcohol Intake frequency: a few times a month Alcohol type: beer Drug use: Never Substance use type: does not use Caregiver/Support person: No Household members: spouse Housing: house Communication Needs: None Do you need help understanding health information?: Never Pets and animals: Yes Pets and animals: cat(s) and dog(s) Sexually active: Yes Do you think of yourself as: straight/heterosexual Current gender identity: male What is your relationship status?: How often do you talk on the phone with friends or family?: three or more times per week How often do you get together with friends or relatives?: three or more times per week How often do you attend zoroastrian or confucianist services?: decline to answer Do you belong to any clubs or organized social groups?: no Panel score (0-1 are the most socially isolated patients): 2 Duration: > 90 minutes/day Frequency: daily Rajwinder/Voodoo: No preference Special rajwinder needs: No Seatbelt use: never Helmet use: Yes Helmet use: sometimes Drive 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 bicycle taxi driver: No Do you feel safe at home: Yes Do you feel safe in your relationship?: Yes PAWSS Have you Been Recently Intoxicated or Drunk Within the Last 30 days?: No Have you Ever Experienced Previous Episodes of Alcohol Withdrawal?: No Have you ever Experienced Withdrawal Seizures?: No Have you ever Experienced Delirium Tremens(DT)s?: No Have you ever undergone Alcohol Rehabilitation Treatment (i.e, inpt ot outpatient treatment programs)?: No Have you ever Experienced Blackouts?: No Have you ever Combined Alcohol with other Downers within the last 90 days?: No Have you ever Combined Alcohol with any other Substance of Abuse during the last 90 days?: No Positive Blood Alcohol level on Presentation? [PCS.BAL]: No Evidence of Increased Autonomic Activity (i.e. HR>120, tremor, sweating, agitation, nausea)?: No Result: 0
--- NOTE | 2024-04-01 22:42 | DI.VRAD_ITS ---
Addendum created by Ian Del Rosario DO on 04/01/2024 10:43:36 PM EDT: THIS REPORT CONTAINS FINDINGS THAT MAY BE CRITICAL TO PATIENT CARE. The findings were verbally communicated via telephone conference with Dr. Fulton, 04/01/2024 10:43 PM EDT. The findings were acknowledged and understood. Initial report created on 04/01/2024 10:41:53 PM EDT: PROCEDURE INFORMATION: Exam: CT Abdomen And Pelvis With Contrast Exam date and time: 04/01/2024 9:18 PM Age: 58 years old Clinical indication: Vomiting; Abdominal pain; Prior surgery; Surgery date: 6+ months; Surgery type: 2 hernia repairs. TECHNIQUE: Imaging protocol: Computed tomography of the abdomen and pelvis with contrast. COMPARISON: CT ABDOMEN PELVIS W 08/30/2023 12:17 AM FINDINGS: Liver: Normal. No mass. Gallbladder and bile ducts: Normal. No calcified stones. No ductal dilation. Pancreas: Normal. No ductal dilation. Spleen: Normal. No splenomegaly. Adrenal glands: Normal. No mass. Kidneys and ureters: Homogeneous enhancement of renal parenchyma. No hydronephrosis. Subtle bilateral perinephric fat stranding. Stomach and bowel: Stomach minimally distended with fluid and a small amount of gas. Multiple dilated loops of small bowel with scattered air-fluid levels. Transition point is in anterior right lower quadrant, 05/22-. No colonic dilatation. There are several colonic diverticula. Appendix: Normal appendix. Intraperitoneal space: No free intraperitoneal gas or ascites. Vasculature: Unremarkable. No abdominal aortic aneurysm. Lymph nodes: Unremarkable. No enlarged lymph nodes. Urinary bladder: Unremarkable as visualized. Reproductive: Unremarkable as visualized. Bones/joints: The spine demonstrates mild degenerative changes at multiple levels. Soft tissues: Subcutaneous fat stranding bilaterally in inguinal regions. Surgical clips bilaterally in lower anterior pelvis. IMPRESSION: 1. Small bowel obstruction with transition point anteriorly in right lower quadrant. 2. Subtle, perinephric fat stranding which could have multiple possible etiologies including scarring, 3rd spacing of fluid, inflammatory process and infection. 3. Colonic diverticula. 4. Stranding of subcutaneous fat in inguinal regions could be as result of prior interventional procedures, surgery or trauma. Correlate clinically. Dictated and Authenticated by: Ian Del Rosario MD. Ordering:WILMER Torres MD
[2024-04-02] MEDS: HYDROmorphone 2 MG/ML SYR 1 MG IVP (00:58)
[2024-04-02] MEDS: ACETAMINOPHEN 1,000 MG/100 ML BTL 400 MG IVPB ×2 (00:59→07:59)
[2024-04-02] MEDS: Lactated Ringers 1,000 ML 75 ML IV (00:59)
[2024-04-02] MEDS: Gastrografin 120 ML BTL PO (01:00)
[2024-04-02 01:11] VITALS: BP 146/83; PULSE 86; RESP 20; TEMP 36.2; O2SAT 96
[2024-04-02] MEDS: Ondansetron 4 MG/2 ML VIAL IVP (01:20)
[2024-04-02 02:55] VITALS: BP 139/85; PULSE 71; RESP 20; O2SAT 97
--- NOTE | 2024-04-02 06:00 | DI.RAD_ITS ---
Exam(s) XR ABDOMEN FLAT PLATE EXAM: 2D digital imaging was performed. CLINICAL HISTORY: gastrographin challenge.. COMPARISON: CT CT ABDOMEN PELVIS W from 04/01/2024 TECHNIQUE: Supine views of the abdomen performed. Two views were obtained. FINDINGS: BOWEL GAS PATTERN: Oral contrast was administered and currently lies in the stomach. There is a mild ly dilated loop of small bowel to the left of the spine. The remainder of the bowel is of normal oli iber. CALCIFICATIONS: No radiopaque calcifications. OSSEOUS STRUCTURES: There is chronic bilateral hip dysplasia. OTHER FINDINGS: There is IV contrast in the urinary bladder secondary to the patient's recent CT exam ination. IMPRESSION: 1. Oral contrast is seen predominantly in the stomach at this time. 2. Mildly dilated loop of small bowel to the left of the spine. The remainder of the bowel is of nor mal caliber. DATA REPOSITORY: RADIATION DOSE DELIVERED:
[2024-04-02 06:48] LABS: Abs Immature Grans 0.04 10^3/uL (0.0-0.06); Absolute Basophil Count 0.02 10^3/uL (0.0-0.2); Absolute Lymphocyte Count 0.94 10^3/uL (1.2-3.4); Absolute Monocyte Count 0.54 10^3/uL (0.1-0.8); Absolute Neutrophil Count 8.23 10^3/uL (1.2-6.7); Basophils % 0.2 %; HCT 43.9 % (40.0-50.0); HGB 14.6 g/dL (13.5-17.5); Immature Grans % 0.4 %; Lymphocytes % 9.6 %; MCH 29.3 pg (27.0-33.0); MCHC 33.3 % (32.0-36.0); MCV 88 fL (80-95); MPV 11.2 fL (8.0-11.0); Monocytes % 5.5 %; Neutrophils % 84.3 %; Platelet Count 136 10^3/uL (130-400); RBC 4.98 10^6/uL (4.36-5.78); RDW 12.5 % (11.8-14.1); RDW-SD 40.4 fL; WBC 9.77 10^3/uL (4.4-10.8)
[2024-04-02 07:07] LABS: Anion Gap 8.4 mmol/L (3-11); BUN 22 mg/dL (7-18); CO2 26.6 mmol/L (21.0-32.0); CREATININE 1.1 mg/dL (0.70-1.30); Calcium 8.3 mg/dL (8.5-10.1); Chloride 107 mmol/L (98-107); Estimated GFR 77.33 (mL/min/1.73m2); Glucose 144 mg/dL (74-106); Potassium 4.6 mmol/L (3.5-5.1); Sodium 142 mmol/L (136-145)
[2024-04-02 07:18] VITALS: BP 120/79; PULSE 66; RESP 16; TEMP 37.3; O2SAT 96
--- NOTE | 2024-04-02 07:58 | DI.VRAD_ITS ---
PROCEDURE INFORMATION: Exam: XR Abdomen Exam date and time: 04/02/2024 2:46 AM Age: 58 years old Clinical indication: Screening exam; Other: Gastrografin challenge; Prior surgery; Surgery date: 6+ months; Surgery type: Hernia repair; Patient HX: 1 hour 45 minutes post gastrografin TECHNIQUE: Imaging protocol: Radiologic exam of the abdomen. Views: Frontal supine view of the abdomen. 1 View. Other contrast: Oral, gastrografin, 120; COMPARISON: CT ABDOMEN PELVIS W 04/01/2024 9:18 PM FINDINGS: Gastrointestinal tract: Contrast is seen in the stomach. Organs: Contrast in the renal collecting systems and bladder. Bones/joints: Unremarkable. IMPRESSION: Contrast in the stomach, renal collecting systems, and bladder. Dictated and Authenticated by: Sophia Garrido MD. Ordering:JUAN Siu MD
[2024-04-02 07:59] VITALS: TEMP 37.3
[2024-04-02] MEDS: Normal Saline Flush 10 ML SYR IVP ×2 (08:00→12:10)
--- NOTE | 2024-04-02 12:00 | DI.RAD_ITS ---
Exam(s) XR ABDOMEN FLAT PLATE EXAM: 2D digital imaging was performed. CLINICAL HISTORY: sbo. COMPARISON: CR,XR XR ABDOMEN FLAT PLATE from 04/02/2024 TECHNIQUE: Supine views of the abdomen performed. Two images were obtained. FINDINGS: BOWEL GAS PATTERN: Nondistended. The oral contrast has passed into the colon in is seen in the rectum . There is no evidence of bowel obstruction. CALCIFICATIONS: No radiopaque calcifications. OSSEOUS STRUCTURES: Degenerative changes are seen in the spine. Stable chronic deformities of the hi ps are noted. OTHER FINDINGS: None. IMPRESSION: Nonobstructive bowel gas pattern. DATA REPOSITORY: RADIATION DOSE DELIVERED:
--- NOTE | 2024-04-02 15:34 | INITIAL_ITS ---
Date of service: 04/02/24 Time of Service: 15:43 Care Management Initial Assmt Initial Assessment REASON FOR HOSPITALIZATION:: Small Bowel Obstruction PREVIOUS FUNCTIONAL STATUS/SOCIAL/FAMILY SUPPORTS:: Terry lives in [place] with his Margaret. He has local family and friends that are supportive. 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 CURRENT FUNCTIONAL STATUS:: Terry was lying in bed, watching softball when CM met with him. He is awake, alert and easily engages in conversation. He is being closely followed by Surgical Team and has no questions or concerns. ADVANCE DIRECTIVES:: None on file. Has patient been provided with info about the portal/API?: Yes Did the patient sign up for the portal?: No CODE STATUS:: Full Code INSURANCE COVERAGE / FINANCIAL ISSUES:: TADEO BS of OR CURRENT HOME/COMMUNITY SERVICES/EQUIPMENT:: None PRIMARY CARE PHYSICIAN:: Aj Rucker POTENTIAL DISCHARGE NEEDS:: Follow up appointments, discharge plan of care. PATIENT/FAMILY EDUCATION NEEDS:: Review discharge instructions, limitations, medications and plan to follow up with community providers. Discuss ask me three. ANTICIPATED BARRIERS TO DISCHARGE:: None identified. TRANSPORTATION:: Via private vehicle with family. PLAN:: Anticipate Mo will discharge home via private vehicle with his . He will follow up with community providers and his discharge plan of care as instructed. No services are anticipated at this time. CM will follow. [facility] All Active Problems (Updated 04/01/24 @ 22:49 by Harshil Fulton MD) SBO (small bowel obstruction) (Acute) Bilateral inguinal hernia without obstruction or gangrene (Acute) Sciatica (Acute) Left lumbosacral radiculopathy (Acute) Chronic cough (Acute) Diverticula, colon, congenital (Acute) Colon polyp (Acute) Tear of medial meniscus of left knee, current (Acute) Internal derangement of left knee (Acute) Knee pain, left (Chronic) Erectile dysfunction (Acute 07/15/15) Family hx of prostate cancer (Acute 07/04/13) father Hyperlipidemia (Acute 07/04/13) Hypertension (Chronic) 03/16/17 [facility]: elevated creatinine;elevated lft's; ekg: ? old infarct Severe obstructive sleep apnea (Acute 06/03/17) 06/03/17-[facility];VERY SEVERE IN REM SLEEP Medical History Concussion Obstructed umbilical hernia (08/02/12) Surgical History Inguinal hernia of right side with obstruction (~09/2023) History of colonoscopy (~10/30/20) Vasectomy Repair of inguinal hernia RIGHT Family History Mother Diabetes Essential hypertension Heart disease Hyperlipidemia Father Essential hypertension Heart disease Hyperlipidemia Prostate cancer Sister Essential hypertension Hyperlipidemia Sister No problems noted. Sister No problems noted. Brother Essential hypertension Hyperlipidemia Brother No problems noted. Maternal Grandfather No problems noted. Paternal Grandfather No problems noted. Maternal Grandmother Diabetes Essential hypertension Hyperlipidemia Paternal Grandmother Heart disease Breast cancer Social History Smoking/Tobacco Use Status: Never Second Hand Exposure: Yes Smoking risk assessment performed?: Yes Alcohol Intake: current Alcohol Intake frequency: a few times a month Alcohol type: beer Drug use: Never Substance use type: does not use Caregiver/Support person: No Household members: spouse Housing: house Communication Needs: None Do you need help understanding health information?: Never Pets and animals: Yes Pets and animals: cat(s) and dog(s) Sexually active: Yes Do you think of yourself as: straight/heterosexual Current gender identity: male What is your relationship status?: How often do you talk on the phone with friends or family?: three or more times per week How often do you get together with friends or relatives?: three or more times per week How often do you attend congregational or restoration services?: decline to answer Do you belong to any clubs or organized social groups?: no Panel score (0-1 are the most socially isolated patients): 2 Duration: > 90 minutes/day Frequency: daily Rajwinder/Jew: No preference Special rajwinder needs: No Seatbelt use: never Helmet use: Yes Helmet use: sometimes Drive 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 Do you feel safe at home: Yes Do you feel safe in your relationship?: Yes SDOH(Care Management) Screening Will the Patient Participate in the Screening?: Yes Do you worry about having a steady place to live?: no Problems where you live: no known problems In the past 12 months, have you had to go without electric, gas, oil or water in your home?: no Have you or anyone in your house had to go without enough food to eat?: no Has lack of transportation kept you from medical appointments or from doing things needed for daily living?: no Has anyone in your support network made you feel unsafe for any reason?: no
[2024-04-02 15:53] VITALS: BP 126/66; PULSE 75; RESP 18; TEMP 37; O2SAT 94
--- NOTE | 2024-04-02 15:57 | HPE_ITS ---
Date of service: 04/02/24 Time of Service: 15:57 Assessment and Plan Assessment and plan (1) Hypertension: Status: Chronic (2) Hyperlipidemia: Status: Acute (3) Diverticula, colon, congenital: Status: Acute (4) Bilateral inguinal hernia without obstruction or gangrene: (5) Left lumbosacral radiculopathy: Status: Acute (6) Severe obstructive sleep apnea: Status: Acute (7) Obstipation: Status: Acute Assessment and plan: Obstipation versus bowel obstruction I did personally review his CT. I did personally review his flatplate of the abdomen after he received the Gastrografin. There does not appear to be any abnormalities in the colon or the small bowel. Clinically the patient is doing well he ate that he is very hungry and ate a bowl of mac & cheese. He has no pain he has no nausea and he would like to go home. He would like to go to work tomorrow. He can go to work as long as he is ensures he drinks plenty of water and really works on fiber for starts a fiber supplement. He should do light duty/desk work for the rest of the week. He will be discharged home tonight. We did review the importance of high-fiber and water and regular exercise to prevent issues with constipation. It will also help prevent his diverticula from coming any worse or complications such as bleeding and infections. Patient had been previously given literature on this. See discharge instructions. He continues to have problems with constipation and obstipation or obstruction, please follow-up at our office This document was created with voice activated software and may contain errors. 40 mins spent in direct pt care and 20 in non face to face time History of Present Illness Narrative: Patient is a 58-year-old male who has had similar attacks in the past. They were thought to be due to inguinal hernias. He did have bilateral inguinal hernia was repaired in September. This is the first time he has had problems since this. There is no signs of any hernia recurrence or herniation causing the obstruction on CT scan. I think this is more of a fecal impaction type situation rather than truly a bowel obstruction. He has not been losing weight. He is not having any pain or difficulty in his bowel movements. He has not noticed any blood in his stools. He did have colonoscopy by myself in 2019 that was symptomatic significant for some diverticuli and hyperplastic polyps but was otherwise normal. Patient has been waxing and waning off and on with abdominal pain and nausea he did have 1 small bowel movement Monday night but woke up on Monday and the pain was just as intense and came into the emergency room. I did review his CT. He has had no fever or chills. He did have several episodes of nausea and vomiting prior to coming into the ER. He had no fever or white count in the hospital. He did receive Gastrografin early this morning. I did review his x-rays which does show the Gastrografin going all the way to the rectum. Since that time patient has had multiple bowel movements. He has no abdominal pain or nausea. He ate some macaroni and cheese which was delicious! But he feels really good he has been up walking in the hallways. He has no chest pain or shortness of breath. He has no productive cough. He has no pain or swelling in his legs. He has no pain or difficulty urinating. He does not feel weak and dizzy. He would like to go home this evening. We discussed the importance of plenty water in the diet anything with caffeine or alcohol does not count. We also discussed the importance of eating a high-fiber diet and 5 servings of fruits and vegetables a day, whole-grain foods and avoid foods that come and can a box [employer]. We also discussed that if he continues to have problems with constipation/obstipation then starting a fiber product such as Metamucil may be good for him. Patient was given a handout on this as well. Patient can return to work in a.m., He needs to be on light duty and no lifting over 10 pounds for the rest of the week. Encouraged him to make some dietary and lifestyle changes. If he has any further problems he should follow-up at my office. Review of Systems All systems reviewed & are unremarkable except as noted in HPI and below PFSH All Active Problems (Updated 04/03/24 @ 22:04 by Lisa Schroeder DO) Obstipation (Acute) Sciatica (Acute) Left lumbosacral radiculopathy (Acute) Chronic cough (Acute) Diverticula, colon, congenital (Acute) Colon polyp (Acute) Tear of medial meniscus of left knee, current (Acute) Internal derangement of left knee (Acute) Knee pain, left (Chronic) Erectile dysfunction (Acute 07/15/15) Family hx of prostate cancer (Acute 07/04/13) father Hyperlipidemia (Acute 07/04/13) Hypertension (Chronic) 03/16/17 [facility]: elevated creatinine;elevated lft's; ekg: ? old infarct Severe obstructive sleep apnea (Acute 06/03/17) 06/03/17[facility];VERY SEVERE IN REM SLEEP Medical History (Updated 04/03/24 @ 22:04 by Lisa Schroeder DO) Bilateral inguinal hernia without obstruction or gangrene Concussion Obstructed umbilical hernia (08/02/12) Surgical History Inguinal hernia of right side with obstruction (~09/2023) History of colonoscopy (~10/30/20) Vasectomy Repair of inguinal hernia RIGHT Family History Mother Diabetes Essential hypertension Heart disease Hyperlipidemia Father Essential hypertension Heart disease Hyperlipidemia Prostate cancer Sister Essential hypertension Hyperlipidemia Sister No problems noted. Sister No problems noted. Brother Essential hypertension Hyperlipidemia Brother No problems noted. Maternal Grandfather No problems noted. Paternal Grandfather No problems noted. Maternal Grandmother Diabetes Essential hypertension Hyperlipidemia Paternal Grandmother Heart disease Breast cancer Social History Smoking/Tobacco Use Status: Never Second Hand Exposure: Yes Smoking risk assessment performed?: Yes Alcohol Intake: current Alcohol Intake frequency: a few times a month Alcohol type: beer Drug use: Never Substance use type: does not use Caregiver/Support person: No Household members: spouse Housing: house Communication Needs: None Do you need help understanding health information?: Never Pets and animals: Yes Pets and animals: cat(s) and dog(s) Sexually active: Yes Do you think of yourself as: straight/heterosexual Current gender identity: male What is your relationship status?: How often do you talk on the phone with friends or family?: three or more times per week How often do you get together with friends or relatives?: three or more times per week How often do you attend nondenominational or mormon services?: decline to answer Do you belong to any clubs or organized social groups?: no Panel score (0-1 are the most socially isolated patients): 2 Duration: > 90 minutes/day Frequency: daily Rajwinder/Mandaen: No preference Special rajwinder needs: No Seatbelt use: never Helmet use: Yes Helmet use: sometimes Drive 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 lifter/driver: No Do you feel safe at home: Yes Do you feel safe in your relationship?: Yes Meds Allergies and Home Medications Allergies Allergy/AdvReac Type Severity Reaction Status Date / Time No Known Allergies Allergy Verified 04/01/24 20:10 Home Medications Medication Instructions Recorded Confirmed Type Motrin 600 mg PO TID PRN 05/27/13 04/01/24 History fish oil-dha-epa 1,200 mg-144 1 ea PO QPM 05/27/13 04/02/24 History mg-216 mg capsule C-Pap 07/25/17 04/01/24 History tadalafil 20 mg tablet 20 mg PO DAILY PRN sexual activity 04/06/23 04/01/24 Rx #30 tabs lovastatin 20 mg tablet 20 mg PO HS #90 tab-caps 07/26/23 04/01/24 Rx losartan 50 mg tablet 50 mg PO HS 10/23/23 04/01/24 History omeprazole 20 mg capsule,delayed 20 mg PO HS 10/23/23 04/01/24 History release ondansetron HCl 4 mg tablet 4 mg PO Q8H PRN nausea and 04/01/24 04/01/24 Rx vomiting #10 tabs aspirin 81 mg chewable tablet 81 mg PO QPM 04/02/24 04/02/24 History Exam Narrative Exam Narrative: PHYSICAL EXAM GENERAL APPEARANCE: Alert, healthy appearance, oriented, x 3,? in no acute distress HYDRATION: Well hydrated HEAD, EYES, EARS, NECK, THROAT: Head is normocephalic, pupils equal, round, reactive to light and accommodation, ocular movement intact, sclera clear and no jaundice. ?Dentition intact. No sore throat.? LUNGS: normal respiration/normal chest excursion. ?Clear to auscultation bilaterally. ?No wheeze. ?HEART: Regular rate and rhythm. no murmurs ABDOMEN: soft and non-tender to palpation.? Normal bowel sounds.? His hernias are clean dry and intact and well-healed. There is no numbness. They show no signs of recurrence. Currently his abdomen is soft and nontender with good bowel sounds. Patient has had multiple bowel movements since he received Gastrografin. He feels cleaned out Results Labs 04/02/24 06:10 04/02/24 06:10 Labs: Laboratory Results - last 24 hr 04/01/24 04/02/24 20:38 06:10 WBC 11.69 H 9.77 RBC 5.80 H 4.98 Hgb 17.0 14.6 D Hct 49.9 43.9 MCV 86 88 MCH 29.3 29.3 MCHC 34.1 33.3 RDW 12.4 12.5 Plt Count 167 136 MPV 11.2 H 11.2 H Immature Gran % 0.4 0.4 Neutrophils % 85.6 84.3 Lymphocytes % 9.1 9.6 Monocytes % 4.6 5.5 Eosinophils % 0.0 0.0 Basophils % 0.3 0.2 Nucleated RBC % 0.0 0.0 Absolute Neutrophils 10.01 H 8.23 H Absolute Lymphocytes 1.06 L 0.94 L Absolute Monocytes 0.54 0.54 Absolute Eosinophils 0.00 0.00 Absolute Basophils 0.04 0.02 Sodium 142 142 Potassium 4.8 4.6 Chloride 103 107 Carbon Dioxide 26.2 26.6 Anion Gap 12.8 H 8.4 BUN 22 H 22 H Creatinine 1.3 1.1 Est GFR (CKD-EPI 2020) 63.28 77.33 Glucose 125 H 144 H Calcium 9.8 8.3 L Magnesium 1.7 L Total Bilirubin 0.8 AST 19 ALT 47 Alkaline Phosphatase 87 Troponin I < 50 Total Protein 8.3 H Albumin 4.5 Lipase 41 Last Vital Signs Temp 37.0 C 04/02/24 15:53 Pulse 75 04/02/24 15:53 Resp 18 04/02/24 15:53 BP 126/66 04/02/24 15:53 Pulse Ox 94 04/02/24 15:53 PAWSS Have you Been Recently Intoxicated or Drunk Within the Last 30 days?: No Have you Ever Experienced Previous Episodes of Alcohol Withdrawal?: No Have you ever Experienced Withdrawal Seizures?: No Have you ever Experienced Delirium Tremens(DT)s?: No Have you ever undergone Alcohol Rehabilitation Treatment (i.e, inpt ot outpatient treatment programs)?: No Have you ever Experienced Blackouts?: No Have you ever Combined Alcohol with other Downers within the last 90 days?: No Have you ever Combined Alcohol with any other Substance of Abuse during the last 90 days?: No Positive Blood Alcohol level on Presentation? [PCS.BAL]: No Evidence of Increased Autonomic Activity (i.e. HR>120, tremor, sweating, agitation, nausea)?: No Result: 0 Time Spent Time spent with Patient: 55-74 minutes Time was spent: preparing to see the patient(eg.review tests), obtaining and/or reviewing separately otained hiistory, ordering medications,tests, procedures, referring, communicating with other health child care team lead, indepentently interpreting results, counseling the patient and care coordination
--- NOTE | 2024-04-02 15:59 | CHAPLAIN ---
Terry was resting in bed when I visited. He was pleasant, but not interested in further conversation. I explained my role and offered support.
--- NOTE | 2024-04-02 16:03 | DSE_ITS ---
Date of service: 04/02/24 Time of Service: 16:03 Discharge Plan Disposition Patient Disposition: Home Condition: Good Discharge Details Reason For Visit: small bowel obstruction Admit Date/Time: 04/01/24 23:08 Admit Provider: Salbador Vela Attending Provider: Salbador Vela Primary Care Provider: Aj Rucker Hospital Course Hospital Course: 58 y/o presented to the ER with complaints of abdominal pain that was associated with nausea and vomiting. Patient was admitted over night for bowel rest and pain control following a CT scan which was remarkable for SBO. Overnight his pain improved and he also had BM x2. He was ambulating without difficulty. He also tolerated a soft diet. D/C home on soft diet. Hydration is very important and he should be drinking water throughout the day. No lifting, pushing or pulling greater than 10 pounds. He will also need to refrain from work tomorrow. Follow up with Dr. Schroeder in 2 weeks. Home Meds and New Rx's Prescriptions: Continued ondansetron HCl 4 mg tablet 4 mg PO Q8H PRN (Reason: nausea and vomiting) Qty: 10 0RF aspirin 81 mg tablet,chewable 81 mg PO DAILY Qty: 90 3RF fish oil-dha-epa 1 EACH capsule 1 ea PO DAILY MOTRIN 600 MG tablet 600 mg PO TID PRN (DME) c-pap 0 .ROUTE .MEDSUPPLY tadalafil 20 mg tablet 20 mg PO DAILY PRN (Reason: sexual activity) Qty: 30 3RF Rx Instructions: administer approximately 30min before sexual activity; do not use more than 1 dose per 24hrs lovastatin 20 mg tablet 20 mg PO HS Qty: 90 12RF losartan 50 mg tablet 50 mg PO HS omeprazole 20 mg capsule,delayed release(DR/EC) 20 mg PO HS Discharge Instructions Instructions: Bowel Obstruction (DC) Additional Instructions: Hydration is very important and he should be drinking water throughout the day. No lifting, pushing or pulling greater than 10 pounds. He will also need to refrain from work tomorrow. Follow up with Dr. Schroeder in 2 weeks. Referrals: Lisa Schroeder DO [OSTEOPATHIC DOCTOR] - (2 week) Activity:: Activity as Tolerated Equipment/Supplies:: No Equipment Needed Diet:: Normal Diet Discharge Orders Discharge Orders: Discharge Order (Routine); Ordered 04/02/24 Ordered By: Cary Farr DS: Summary Time Spent with Patient providing and/or coordinating discharge services: Less than 30 minutes Status at Discharge Functional status at discharge: independent ambulation Overall status at discharge: patient is back to baseline Mental Status: mental status grossly normal Speech and Movement: speech and movement normal Mood: congruent mood Affect: normal affect Quality:SDOH Health Related Social Needs: No Data to Display Exam Const General: cooperative, healthy appearing and comfortable Orientation: alert and oriented x3 Resp Effort & Inspection: normal respiratory effort, no audible wheezes and no cough GI Inspection: normal to inspection Palpation: soft, no guarding and nontender Psych Mental Status: mental status grossly normal Speech and Movement: speech and movement normal Mood: congruent mood Affect: normal affect DS: Data Vitals/I&O Vitals and I&O: Vital Signs Temperature 37.0 C 04/02/24 15:53 Temperature Source Tympanic 04/02/24 15:53 Pulse 75 04/02/24 15:53 Pulse Rhythm Regular 04/02/24 08:43 Respiratory Rate 18 04/02/24 15:53 Respiratory Effort Normal, Non-Labored 04/02/24 08:43 Respiratory Depth Normal 04/02/24 08:43 Respiratory Pattern Normal 04/02/24 08:43 Blood Pressure 126/66 04/02/24 15:53 Blood Pressure Position Sitting 04/01/24 20:06 Pulse Oximetry 94 04/02/24 15:53 Oxygen Delivery Method Room Air 04/02/24 15:53 Oxygen Flow Rate 0 04/02/24 15:53 Pain Level 0 04/02/24 15:53 Comment Patient complaining of dizziness prior to this set of vital signs 04/02/24 02:55 Intake & Output 04/01/24 04/02/24 04/02/24 18:59 06:59 18:59 Intake Total 1202 / 1202 1590 / 1590 Output Total 200 / 200 Balance 1202 / 1202 1390 / 1390 Weight 81.6 kg Intake: IV 1202 / 1202 1110 / 1110 Oral 480 / 480 Output: Urine 200 / 200 Other: Urine Color Yellow Urine Appearance Clear Urine Odor None Stool Size Large Stool Characteristics Soft Liquid Voiding Methods Urinal Data Completed and Pending Labs on day of discharge: Labs from last 24 hours 04/02/24 04/01/24 06:10 20:38 WBC 9.77 11.69 H RBC 4.98 5.80 H Hgb 14.6 D 17.0 Hct 43.9 49.9 MCV 88 86 MCH 29.3 29.3 MCHC 33.3 34.1 RDW 12.5 12.4 Plt Count 136 167 MPV 11.2 H 11.2 H Immature Gran % 0.4 0.4 Neutrophils % 84.3 85.6 Lymphocytes % 9.6 9.1 Monocytes % 5.5 4.6 Eosinophils % 0.0 0.0 Basophils % 0.2 0.3 Nucleated RBC % 0.0 0.0 Absolute Neutrophils 8.23 H 10.01 H Absolute Lymphocytes 0.94 L 1.06 L Absolute Monocytes 0.54 0.54 Absolute Eosinophils 0.00 0.00 Absolute Basophils 0.02 0.04 Sodium 142 142 Potassium 4.6 4.8 Chloride 107 103 Carbon Dioxide 26.6 26.2 Anion Gap 8.4 12.8 H BUN 22 H 22 H Creatinine 1.1 1.3 Est GFR (CKD-EPI 2020) 77.33 63.28 Glucose 144 H 125 H Calcium 8.3 L 9.8 Magnesium 1.7 L Total Bilirubin 0.8 AST 19 ALT 47 Alkaline Phosphatase 87 Troponin I < 50 Total Protein 8.3 H Albumin 4.5 Lipase 41 PFSH All Active Problems (Updated 04/01/24 @ 22:49 by Harshil Fulton MD) SBO (small bowel obstruction) (Acute) Bilateral inguinal hernia without obstruction or gangrene (Acute) Sciatica (Acute) Left lumbosacral radiculopathy (Acute) Chronic cough (Acute) Diverticula, colon, congenital (Acute) Colon polyp (Acute) Tear of medial meniscus of left knee, current (Acute) Internal derangement of left knee (Acute) Knee pain, left (Chronic) Erectile dysfunction (Acute 07/15/15) Family hx of prostate cancer (Acute 07/04/13) father Hyperlipidemia (Acute 07/04/13) Hypertension (Chronic) 03/16/17 [facility]: elevated creatinine;elevated lft's; ekg: ? old infarct Severe obstructive sleep apnea (Acute 06/03/17) 06/03/17[facility];VERY SEVERE IN REM SLEEP Medical History Concussion Obstructed umbilical hernia (08/02/12) Surgical History Inguinal hernia of right side with obstruction (~09/2023) History of colonoscopy (~10/30/20) Vasectomy Repair of inguinal hernia RIGHT Family History Mother Diabetes Essential hypertension Heart disease Hyperlipidemia Father Essential hypertension Heart disease Hyperlipidemia Prostate cancer Sister Essential hypertension Hyperlipidemia Sister No problems noted. Sister No problems noted. Brother Essential hypertension Hyperlipidemia Brother No problems noted. Maternal Grandfather No problems noted. Paternal Grandfather No problems noted. Maternal Grandmother Diabetes Essential hypertension Hyperlipidemia Paternal Grandmother Heart disease Breast cancer Social History Smoking/Tobacco Use Status: Never Second Hand Exposure: Yes Smoking risk assessment performed?: Yes Alcohol Intake: current Alcohol Intake frequency: a few times a month Alcohol type: beer Drug use: Never Substance use type: does not use Caregiver/Support person: No Household members: spouse Housing: house Communication Needs: None Do you need help understanding health information?: Never Pets and animals: Yes Pets and animals: cat(s) and dog(s) Sexually active: Yes Do you think of yourself as: straight/heterosexual Current gender identity: male What is your relationship status?: How often do you talk on the phone with friends or family?: three or more times per week How often do you get together with friends or relatives?: three or more times per week How often do you attend uatsdin or caodaism services?: decline to answer Do you belong to any clubs or organized social groups?: no Panel score (0-1 are the most socially isolated patients): 2 Duration: > 90 minutes/day Frequency: daily Rajwinder/Jewish: No preference Special rajwinder needs: No Seatbelt use: never Helmet use: Yes Helmet use: sometimes Drive 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 river driver: No Do you feel safe at home: Yes Do you feel safe in your relationship?: Yes Time Spent with Patient Time Spent with Patient: <45 minutes Time was spent: preparing to see the patient(eg.review tests), obtaining and/or reviewing separately otained hiistory and counseling the patient
--- NOTE | 2024-04-02 17:12 | NUR.NOTE ---
Nursing Note: Pt DC to home with via private vehicle, denies having any further questions and has all personal belongings, escorted to main entrance by this nurse.
== END 2024-04-02 17:03 | disposition home or self-care (01) ==
LOC: ER 23:41 → MS 04-02 00:13
PROVIDERS: Admitting Provider Surgery; Emergency Provider Emergency Medicine; PCP Nurse Practitioner Family; Visit Provider Surgery
DX: K56.609 Unspecified intestinal obstruction, unspecified as to partial versus complete obstruction (principal); N20.1 Calculus of ureter; K76.0 Fatty (change of) liver, not elsewhere classified; I10 Essential (primary) hypertension; Z79.899 Other long term (current) drug therapy; M54.17 Radiculopathy, lumbosacral region; G47.33 Obstructive sleep apnea (adult) (pediatric); E78.5 Hyperlipidemia, unspecified
CPT/HCPCS: 36415; 80048; 80053; 83690; 93005; 96365; 96366; 96375; 96376; 99285; 74018; 74177; 83735; 84484; 85025; 93010; J0131; J1170; J2270; J2405; J3490

== ENCOUNTER 2024-09-27 02:29 | Outpatient (CLI) | payer BC, SELFPAY ==
[2024-09-27 12:51] LABS: Calculated LDL 89 mg/dL (<100); Cholesterol 148 mg/dL (<200); HDL Cholesterol 48 mg/dL (40-60); Triglyceride 58 mg/dL (<150)
[2024-09-27 12:53] LABS: Hemoglobin A1C 6.2 % (<5.7)
[2024-09-27 18:54] LABS: PSA, Screening 0.7 ng/mL (<=4.5)
== END 2024-09-27 02:30 | disposition home or self-care (01) ==
PROVIDERS: PCP Nurse Practitioner Family; Visit Provider Nurse Practitioner Family
DX: Z12.5 Encounter for screening for malignant neoplasm of prostate (principal); Z13.1 Encounter for screening for diabetes mellitus; Z13.220 Encounter for screening for lipoid disorders
CPT/HCPCS: 36415; 80061; 84153; 83036

== ENCOUNTER 2024-10-18 01:40 | Outpatient (CLI) | payer BC, SELFPAY ==
--- NOTE | 2024-10-18 07:30 | DI.MRI_ITS ---
Exam(s) MR LUMBAR SPINE WO EXAM: MR LUMBAR SPINE WO CLINICAL HISTORY: Low back pain,m54.50. TECHNIQUE: Multiplanar multisequence MRI of the Lumbar spine was performed. COMPARISON: MR MR LUMBAR SPINE WO from 09/12/2023 CR XR ABDOMEN FLAT PLATE from 04/02/2024 FINDINGS: Bones: The last intervertebral disc space is designated the L5/S1 level for the numbering purpose of this ex amination. The vertebral body heights are well maintained. Alignment: Unremarkable. The marrow signal characteristics are unremarkable. Cord: The conus tip ends at the T12 level. It is of normal size and signal intensity. T12-L1: No focal disc herniation is present. No central spinal canal stenosis.No neural foraminal st enosis. L1-2: The disc height is maintained. Small endplate osteophytes projecting anteriorly. No focal di sc herniation is present. Small endplate osteophytes projecting anteriorly. No central canal steno sis.No neural foraminal stenosis. L2-3: The disc height is maintained. There is prominent concentric disc bulging similar to prior. T iny subligamentous inferior disc protrusion not seen on the current exam. Stable mild to moderate sp inal canal stenosis.Mild bilateral neural foraminal stenosis. L3-4: Disc height is maintained. Broad-based disc bulgingstable tiny central disc protrusion eccentr ic toward the left. Mild central spinal canal stenosis. Mild facet degenerative changes greater on the right. Mild right neural foraminal stenosis. L4-5:Mild loss of disc height, eccentric toward the right. Small endplate osteophytes. Mild disc bu lging, eccentric toward the right. No focal disc herniation is present. Mild right-sided facet dege nerative changes. Mild central spinal canal stenosis.Moderate right neural foraminal narrowing. No significant left neural foraminal stenosis. L5-S1: Mild loss of disc height. Minimal disc bulging.No focal disc herniation is present. No centr al spinal canal stenosis. Bilateral facet joint degenerative changes cause mild bilateral neural fo raminal narrowing. No neural foraminal stenosis. The visualized SI joints and sacrum are unremarkable. Soft tissues: The paraspinal soft tissues are unremarkable. IMPRESSION: Stable degenerative changes from L2-3 through L5-S1. Findings are greatest at L2-3 where there is mi [id number] central canal stenosis secondary to disc bulging. Neural foraminal narrowing greatest on the right at L4-5. DATA REPOSITORY:
== END 2024-10-18 02:00 ==
PROVIDERS: PCP Nurse Practitioner Family; Visit Provider Nurse Practitioner Family
DX: M51.370 Other intervertebral disc degeneration, lumbosacral region with discogenic back pain only (principal)
CPT/HCPCS: 72148

== ENCOUNTER 2024-11-15 00:16 | Outpatient (CLI) | payer BC, SELFPAY ==
--- NOTE | 2024-11-15 06:45 | DI.CT_ITS ---
Exam(s) CT ABDOMEN PELVIS W EXAM: CT ABDOMEN PELVIS W CLINICAL HISTORY: Mass at bottom of left inguinal canal,bilat inguinal hernia,k40.20 TECHNIQUE: Imaging Protocol: Axial computed tomography images with coronal and sagittal reformatted images were created and reviewed. CONTRAST MATERIAL: Intravenous: Omnipaque 350 Contrast volume:75 mL Oral: Yes COMPARISON: CT CT ABDOMEN PELVIS W from 04/01/2024 FINDINGS: ABDOMEN: Lung Bases: Coronary artery calcifications are present. Liver: There is decreased attenuation of the liver suggesting fatty infiltration. There is focal fat ty sparing adjacent to the gallbladder fossa. No measurable mass. Portal, Superior Mesenteric, and Splenic Veins: Unremarkable. Gallbladder and Biliary Tract: No radiodense calculus or dilation. Pancreas: Normal density, no abnormal calcifications or inflammatory process. Spleen: Normal. Adrenals: No masses seen. Kidneys: Normal size, contour and axis. There is again seen a 7 mm stone in the distal right ureter. It is unchanged in location. No significant hydronephrosis is present. No masses seen. Abdominal Aorta: Abdominal portion non-dilated. Atherosclerotic calcification is present. Bowel: There are few scattered diverticula in the colon but no evidence of acute diverticulitis. The re is no evidence of bowel obstruction. There is no bowel wall thickening present. Appendix is unre markable. Peritoneal Cavity: No ascites, collection or mesenteric inflammatory response. No free air. Lymph Nodes: Within normal limits. Bones: Within normal limits for the patient's age. Soft Tissues: There are findings suggestive of bilateral prior inguinal hernia repairs. There is aga in seen infiltration/stranding in the inguinal regions bilaterally. This has decreased compared to . This may reflect residual scarring. No focal fluid collection is identified to suggest an abscess. No significant adenopathy is appreciated. No evidence of a recurrent hernia. PELVIS: Bladder: The urinary bladder is incompletely distended limiting evaluation. No gross abnormalities i dentified. Reproductive Organs: Unremarkable as visualized. Lymph Nodes: Within normal limits. Bones: Within normal limits for the patient's age. IMPRESSION: 1. Improvement in the infiltration/stranding in the inguinal regions bilaterally. This may represent some interval healing. No focal fluid collection to suggest an abscess. No soft tissue mass or meme nopathy is appreciated. No evidence of a recurrent inguinal hernia. 2. No acute abdominal or pelvic process. RADIATION DOSE DELIVERED: 569.04mGy.cm Total DLP DATA REPOSITORY: All CT scans at this facility are submitted to the National Radiology Data Registry (NRDR) Dose Index Registry (DIR) with the [employer] ([employer]). RADIATION OPTIMIZATION: All CT scans at this facility use at least one of these dose optimization te chniques: automated exposure control; mA and/or kV adjustment per patient size (includes targeted exa ms where dose is matched to clinical indication); or iterative reconstruction.
[2024-11-15] MEDS: Barium Sulfate 2% W/V-Creamy Vanilla Smoothie 450 ML BTL PO (07:42)
[2024-11-15] MEDS: Barium Sulfate 2% W/V-Berry Smoothie 450 ML BTL PO (07:43)
[2024-11-15 08:08] LABS: CREATININE 1.4 mg/dL (0.70-1.30); Estimated GFR 57.54 (mL/min/1.73m2)
[2024-11-15] MEDS: Normal Saline - Diluent 50 ML VIAL IJ (09:49)
[2024-11-15] MEDS: Omnipaque 350 MG/ML 100 ML BTL 75 ML IJ (09:50)
== END 2024-11-15 00:36 ==
PROVIDERS: PCP Nurse Practitioner Family; Visit Provider Nurse Practitioner Family
DX: K40.20 Bilateral inguinal hernia, without obstruction or gangrene, not specified as recurrent (principal)
CPT/HCPCS: 74177; 82565; J3490

== ENCOUNTER 2025-10-10 02:38 | Outpatient (CLI) | payer BC, SELFPAY ==
[2025-10-10 15:55] LABS: Hemoglobin A1C 7.0 % (<5.7)
[2025-10-10 16:50] LABS: Anion Gap 7.5 mmol/L (3-11); BUN 21 mg/dL (9-23); CO2 27.5 mmol/L (20.0-31.0); Calcium 9.2 mg/dL (8.3-10.6); Chloride 103 mmol/L (98-107); Cholesterol 154 mg/dL (<200); Glucose 96 mg/dL (74-106); HDL Cholesterol 44 mg/dL (>40); Potassium 4.3 mmol/L (3.5-5.1); Sodium 138 mmol/L (136-145)
== END 2025-10-10 02:39 | disposition home or self-care (01) ==
LOC: LBO 02:38
PROVIDERS: PCP Nurse Practitioner Family; Visit Provider Nurse Practitioner Family
DX: I10 Essential (primary) hypertension (principal); Z13.220 Encounter for screening for lipoid disorders; Z13.1 Encounter for screening for diabetes mellitus
CPT/HCPCS: 36415; 80048; 80061; 83036